=== PATIENT | female | born 1950 | race Caucasian/White ===

== ENCOUNTER 2018-07-09 21:22 | Inpatient (IN) ==
[2018-07-09] MEDS ORDERED: Diphtheria/Tetanus/Pertussis Vaccine Inj 0.5 ML Syringe IM ONE (22:57)
[2018-07-09] MEDS ORDERED: Acetaminophen 325 MG Tablet PO ONE (22:57)
--- NOTE | 2018-07-09 23:18 | XR ---
EXAM DATE: 07/09/2018 11:13 PM EDT AGE/SEX: 68 years / Female INDICATIONS: Trauma. Patient fell at home tonight. CLINICAL DATA: This is the patient's initial encounter. Patient reports that signs and symptoms have been present for 1 day and indicates a pain score of Nonresponsive. MEDICAL/SURGICAL HISTORY: Carcinoma, breast. . Left mastectomy. Brain shunt at 10 years of age. COMPARISON: [facility], XR SHUNT SERIES, 06/26/2018. . FINDINGS: No infiltrate, effusion or pneumothorax. Mild diffuse chronic interstitial opacities are again noted. Heart size stable, normal. Thoracic aorta is atherosclerotic. A ventriculoperitoneal shunt catheter is again noted. CONCLUSION: No evidence of acute cardiopulmonary disease. Electronically signed by: Robert Ma MD 07/09/2018 11:17 PM EDT
--- NOTE | 2018-07-09 23:31 | ED ---
HPI General Chief complaint: Fall Stated complaint: Fall Time Seen by Provider: 07/09/18 22:30 Source: patient and family History of Present Illness HPI narrative: The patient is a 68 year old female who presents to the [facility] emergency department with a history of reportedly falling sometime earlier this evening. The patient cannot recall the fall. The patient does have some memory problems according to her sister at the bedside. The patient has been off balance over the last 3-4 weeks with a shuffling gait. She is in the process of having this worked up as an outpatient. Last week she underwent a CT scan of the brain and a shuntogram that was reportedly unremarkable. The patient has had a shunt in place and she was 10 years of age. The patient lives alone. The patient is legally blind since childhood. According to the patient's sister, she checks on her between 11 AM and 3 PM daily and then in the the patient's niece will check on her. The patient's niece went to check on her and noticed some blood on the pillow and presume that the patient fell when she saw a wound on the right ear. The patient has an abrasion and bruising to the pinna. The patient herself denies any pain currently. She denies having any headache, neck pain, numbness or tingling to her extremities or weakness of her extremities. She denies having any chest pain, chest pressure, or shortness of breath. On review of systems otherwise, the patient denies having any known recent fevers, cough, congestion, abdominal pain, vomiting, diarrhea, urinary symptoms, or neurologic symptoms. The patient's family reports that she has had a diminished appetite over the last few days. The patient's family is unsure when her tetanus was last updated. Related Data Home Medications Medication Instructions Recorded Confirmed alendronate 70 mg PO 2XWEEK 06/21/18 07/10/18 amlodipine 5 mg PO DAILY 06/21/18 07/10/18 calcitriol 0.25 mcg PO DAILY 06/21/18 07/10/18 calcium carbonate-vitamin D3 1 tab PO 06/21/18 [Calcium 600 + D(3)] losartan 1 tab PO DAILY 06/21/18 07/10/18 omega [id number] oil [Fish Oil] 1 tab PO DAILY 06/21/18 07/10/18 Allergies Allergy/AdvReac Type Severity Reaction Status Date / Time No Known Allergies Allergy Verified 07/09/18 21:51 Review of Systems ROS: all other systems reviewed are negative (Except for that which was mentioned in the HPI) [facility] Social History Social History Substance History: No History of Abuse Second Hand Smoke Exposure: No Smoking Status: Never smoker How Often Do You Have a Drink Containing Alcohol: Monthly or less Recent Travel in [facility] within the Last 8 Weeks: No Recent Out of Country Travel within the Last 8 Weeks: No Immunization History Tetanus Immunization: Unsure Hx Influenza Vaccine This Season: Yes Exam Const General: cooperative, no acute distress and well developed Orientation: alert, awake, oriented to person, oriented to place and not oriented to time HENMT Head: normocephalic and Garrison's sign Nose: no nasal discharge and no epistaxis Mouth: moist mucous membranes Eyes Sclera: normal sclerae Pupils: other (The patient is legally blind. The patient has a disconjugate gaze. The patient is unable to see even shadows.) Neck Neck: trachea midline and no JVD Resp Effort & Inspection: no use of accessory muscles Auscultation: clear to auscultation bilaterally Cardio Rate: tachycardic (Sinus tachycardia in the low 100s. No pulse deficits to the extremities on simultaneous auscultation and palpation of her radial artery) Rhythm: regular rhythm Heart Sounds: no gallops, no murmurs and no rubs GI Inspection: non-distended Palpation: soft, no hepatosplenomegaly and nontender Auscultation: normal bowel sounds Back/Spine/Pelvis Back: no CVA tenderness Skin General: dry skin (warm) Neuro General: alert and awake Cranial Nerves: other (The patient has a disconjugate gaze related to a history of being blind since childhood, otherwise cranial nerves II through XII are intact.) Speech: speech normal Motor: strength 5/5 throughout and no movement abnormalities noted Sensory Exam: no sensory deficits noted Extrem General: normal to inspection (No calf tenderness on palpation. 2+ pulses in all 4 extremities.), no clubbing, no cyanosis and no edema Right upper extremity: normal to inspection and full ROM Left upper extremity: normal to inspection and full ROM Right lower extremity: normal to inspection and full ROM Left lower extremity: normal to inspection and full ROM Psych Mood: congruent mood Affect: normal affect Judgment: judgment good Course Consultations Consultation #1: The patient's case including history, pertinent physical examination findings, and laboratory studies were discussed with Dr. Dias. It was agreed that the patient would be admitted to Dr. Grider's service. Time: 01:45 Consultation #2: The patient's case including history, pertinent physical examination findings, and laboratory studies were discussed with the residents. It was agreed that the patient would be admitted to the family practice resident's service. Initial Documented Vital Signs Temperature 97.9 F 07/09/18 21:45 Pulse Rate 114 H 07/09/18 21:45 Respiratory Rate 16 07/09/18 21:45 Blood Pressure 200/88 H 07/09/18 21:45 Pulse Oximetry 97 07/09/18 21:45 Last Documented Vital Signs Temperature 98.5 F 07/11/18 04:00 Pulse Rate 101 H 07/11/18 04:00 Respiratory Rate 15 07/11/18 04:00 Blood Pressure 169/76 H 07/11/18 04:00 Pulse Oximetry 98 07/11/18 04:00 Medical Decision Making MDM Narrative Medical decision making narrative: During the course of the patient's emergency department visit, the patient's history, examination, and differential diagnosis were reviewed with the patient. The patient was placed on a program facilitator with oximetry and frequent blood pressure monitoring. The patient had IV access obtained and blood work sent for analysis. A diagnostic evaluation was started regarding the patient's reported fall and head injury. The patient was initially provided normal saline IV fluids of 500 mL bolus 1 due to reported decreased p.o. intake recently. The patient's diagnostic studies are remarkable for a white count of 9.3, platelets of 265, monocytosis at 10.8, neutrophil percent 82, hemoglobin 12.8, chemistry is remarkable for a glucose of 89, creatinine is 1.46. Urinalysis shows 100 protein few mucus trace ketones also consistent with mild dehydration , bacteria rare, culture indicated. Chest x-ray showed no evidence of acute cardiopulmonary disease. CT scan of the brain showed bilateral chronic subdural hematomas/cystic hygromas that are again noted measuring approximately 6 mm in maximal thickness on the right and 11 mm on the left, slightly increased density within the left collection now seen suggesting a possible acute component. This was discussed with the neurosurgeon on-call who recommended observation. He recommended repeating the CT scan of the brain in [address] scan of the C-spine showed degenerative changes, no other acute abnormality. The patient's results were discussed with the patient, including the plan of care. I explained that further testing and/ or monitoring is indicated based on the patient's history, examination, and/ or laboratory findings. Therefore, I recommended admission for additional evaluation. The patient expressed understanding and was agreeable with this plan. The patient was admitted to the hospital in guarded condition and sent to a bed under the care of the residents. Medical Screen Exam Complete: Yes Emergency Medical Condition: Yes Differential Diagnosis Differential Diagnosis: Intracranial mass, versus intracranial hemorrhage, versus cervical spine trauma Medical Records Medical records reviewed: Yes I reviewed the patient's medical records. Lab Data Lab results reviewed: Yes I reviewed the patient's lab results. Result diagrams: 07/10/18 05:40 07/10/18 05:40 Lab Results 07/09/18 07/09/18 07/09/18 Range/Units 23:59 23:59 23:59 WBC 10.1 (4.0-11.0) th/mm3 RBC 4.36 (4.00-5.30) mil/mm3 Hgb 13.8 (11.6-15.3) gm/dL Hct 39.5 (35.0-46.0) % MCV 90.5 (80.0-100.0) fL MCH 31.6 (27.0-34.0) pg MCHC 34.9 (32.0-36.0) % RDW 13.5 (11.6-17.2) % Plt Count 265 (150-450) th/mm3 MPV 7.9 (7.0-11.0) fL Neut % (Auto) 85.3 H (16.0-70.0) % Lymph % (Auto) 5.6 L (9.0-44.0) % [place] % (Auto) 8.2 H (0.0-8.0) % Eos % (Auto) 0.2 (0.0-4.0) % Baso % (Auto) 0.7 (0.0-2.0) % Neut # (Auto) 8.6 H (1.8-7.7) th/mm3 Lymph # (Auto) 0.6 L (1.0-4.8) th/mm3 [place] # (Auto) 0.8 (0.0-0.9) th/mm3 Eos # (Auto) 0.0 (0.0-0.4) th/mm3 Baso # (Auto) 0.1 (0.0-0.2) th/mm3 WBC Differential . Differential Comment Auto diff final Sodium 134 L (136-145) meq/L Potassium 3.5 (3.5-5.1) meq/L Chloride 96 L (98-107) meq/L Carbon Dioxide 24.5 (21.0-32.0) meq/L Anion Gap 14 (5-15) meq/L BUN 37 H (7-18) mg/dL Creatinine 1.46 H (0.50-1.00) mg/dL Estimated GFR 36 L (>89) mL/min Random Glucose 89 (74-106) mg/dL Calcium 9.0 (8.5-10.1) mg/dL Total Bilirubin 0.6 (0.2-1.0) mg/dL AST 15 (15-37) U/L ALT 14 (10-53) U/L Alkaline Phosphatase 43 L (45-117) U/L Ammonia (11-32) mcmol/L Total Protein 7.4 (6.4-8.2) g/dL Albumin 4.1 (3.4-5.0) g/dL Vitamin B12 (193-986) pg/mL TSH (0.358-3.740) uIU/mL Urine Color Straw (Yellw/Straw) Urine Clarity Clear (Clear) Urine pH 6.0 (5.0-8.5) Ur Specific [place] 1.006 (1.002-1.035) Urine Protein 100 H (Neg-Trace) mg/dL Urine Glucose (UA) Negative (Negative) mg/dL Urine Ketones Trace H (Negative) mg/dL Urine Occult Blood Negative (Negative) Urine Nitrate Negative (Negative) Urine Bilirubin Negative (Negative) Urine Urobilinogen Less than 2 (Less than 2) mg/dL Ur Leukocyte Esterase Negative (Negative) Urine RBC 1 (0-3) /hpf Urine WBC 2 (0-5) /hpf Urine Bacteria Rare H (None) /hpf Urine Mucus Few H (Occasional) /lpf Micro UA Comment Cath-culture ind Ur Microscopic Review Not Reportable Urine Culture Comments Cath-cult indicated 07/10/18 07/10/18 07/10/18 Range/Units 05:40 05:40 20:45 WBC 9.3 (4.0-11.0) th/mm3 RBC 4.11 (4.00-5.30) mil/mm3 Hgb 12.8 (11.6-15.3) gm/dL Hct 37.8 (35.0-46.0) % MCV 92.0 (80.0-100.0) fL MCH 31.1 (27.0-34.0) pg MCHC 33.8 (32.0-36.0) % RDW 13.7 (11.6-17.2) % Plt Count 265 (150-450) th/mm3 MPV 8.1 (7.0-11.0) fL Neut % (Auto) 82.0 H (16.0-70.0) % Lymph % (Auto) 6.4 L (9.0-44.0) % [place] % (Auto) 10.8 H (0.0-8.0) % Eos % (Auto) 0.3 (0.0-4.0) % Baso % (Auto) 0.5 (0.0-2.0) % Neut # (Auto) 7.6 (1.8-7.7) th/mm3 Lymph # (Auto) 0.6 L (1.0-4.8) th/mm3 [place] # (Auto) 1.0 H (0.0-0.9) th/mm3 Eos # (Auto) 0.0 (0.0-0.4) th/mm3 Baso # (Auto) 0.0 (0.0-0.2) th/mm3 WBC Differential . Differential Comment Auto diff final Sodium 136 (136-145) meq/L Potassium 3.3 L (3.5-5.1) meq/L Chloride 98 (98-107) meq/L Carbon Dioxide 24.7 (21.0-32.0) meq/L Anion Gap 13 (5-15) meq/L BUN 36 H (7-18) mg/dL Creatinine 1.34 H (0.50-1.00) mg/dL Estimated GFR 39 L (>89) mL/min Random Glucose 70 L (74-106) mg/dL Calcium 8.7 (8.5-10.1) mg/dL Total Bilirubin (0.2-1.0) mg/dL AST (15-37) U/L ALT (10-53) U/L Alkaline Phosphatase (45-117) U/L Ammonia 14 (11-32) mcmol/L Total Protein (6.4-8.2) g/dL Albumin (3.4-5.0) g/dL Vitamin B12 248 (193-986) pg/mL TSH (0.358-3.740) uIU/mL Urine Color (Yellw/Straw) Urine Clarity (Clear) Urine pH (5.0-8.5) Ur Specific [place] (1.002-1.035) Urine Protein (Neg-Trace) mg/dL Urine Glucose (UA) (Negative) mg/dL Urine Ketones (Negative) mg/dL Urine Occult Blood (Negative) Urine Nitrate (Negative) Urine Bilirubin (Negative) Urine Urobilinogen (Less than 2) mg/dL Ur Leukocyte Esterase (Negative) Urine RBC (0-3) /hpf Urine WBC (0-5) /hpf Urine Bacteria (None) /hpf Urine Mucus (Occasional) /lpf Micro UA Comment Ur Microscopic Review Urine Culture Comments 07/10/18 Range/Units 20:45 WBC (4.0-11.0) th/mm3 RBC (4.00-5.30) mil/mm3 Hgb (11.6-15.3) gm/dL Hct (35.0-46.0) % MCV (80.0-100.0) fL MCH (27.0-34.0) pg MCHC (32.0-36.0) % RDW (11.6-17.2) % Plt Count (150-450) th/mm3 MPV (7.0-11.0) fL Neut % (Auto) (16.0-70.0) % Lymph % (Auto) (9.0-44.0) % [place] % (Auto) (0.0-8.0) % Eos % (Auto) (0.0-4.0) % Baso % (Auto) (0.0-2.0) % Neut # (Auto) (1.8-7.7) th/mm3 Lymph # (Auto) (1.0-4.8) th/mm3 [place] # (Auto) (0.0-0.9) th/mm3 Eos # (Auto) (0.0-0.4) th/mm3 Baso # (Auto) (0.0-0.2) th/mm3 WBC Differential Differential Comment Sodium (136-145) meq/L Potassium (3.5-5.1) meq/L Chloride (98-107) meq/L Carbon Dioxide (21.0-32.0) meq/L Anion Gap (5-15) meq/L BUN (7-18) mg/dL Creatinine (0.50-1.00) mg/dL Estimated GFR (>89) mL/min Random Glucose (74-106) mg/dL Calcium (8.5-10.1) mg/dL Total Bilirubin (0.2-1.0) mg/dL AST (15-37) U/L ALT (10-53) U/L Alkaline Phosphatase (45-117) U/L Ammonia (11-32) mcmol/L Total Protein (6.4-8.2) g/dL Albumin (3.4-5.0) g/dL Vitamin B12 (193-986) pg/mL TSH 2.460 (0.358-3.740) uIU/mL Urine Color (Yellw/Straw) Urine Clarity (Clear) Urine pH (5.0-8.5) Ur Specific [place] (1.002-1.035) Urine Protein (Neg-Trace) mg/dL Urine Glucose (UA) (Negative) mg/dL Urine Ketones (Negative) mg/dL Urine Occult Blood (Negative) Urine Nitrate (Negative) Urine Bilirubin (Negative) Urine Urobilinogen (Less than 2) mg/dL Ur Leukocyte Esterase (Negative) Urine RBC (0-3) /hpf Urine WBC (0-5) /hpf Urine Bacteria (None) /hpf Urine Mucus (Occasional) /lpf Micro UA Comment Ur Microscopic Review Urine Culture Comments Imaging Data Radiologist's impression: Cervical Spine CT 07/09/18 22:57 CONCLUSION: 1. Intact cervical spine. 2. Degenerative disc disease at C5/C6. Chest X-Ray 07/09/18 22:57 CONCLUSION: No evidence of acute cardiopulmonary disease. Head CT 07/09/18 22:57 CONCLUSION: 1. Bilateral chronic subdural hematomas. Questionable superimposed acute component on the left but no significant change in size. Close clinical observation and a follow-up noncontrast head CT and approximately 24 hours is recommended. 2. Otherwise no evidence of acute intracranial hemorrhage/hematoma. There is no midline shift. 3. Atrophy and chronic white matter changes are again noted. 4. Shunted. No evidence of an associated acute complication. . ECG Data Attestation: I personally reviewed and interpreted this ECG as follows: Interpretation: The patient had an EKG done on arrival. The patient's EKG shows a sinus tachycardia rate of 112, QRS duration 74 ms, QTC [address] segment elevation. The patient's baseline is tremulous which could be affecting interpretation, however multiple EKGs were done to eliminate the tremulousness without success. Discharge Plan Discharge Disposition Patient Disposition: 30 Still Patient Discharge Details Diagnosis: Head injury, Subdural hematoma, post-traumatic Physicians Team ED Provider: Brit Rodríguez Primary Care Provider: Patsy Grider Attending Provider: Patsy Grider Other Providers: Percy Dias ; Priyank Holguin Discharge Interventions Interventions: ED Discharge Assessment Last Done: 07/10/18 08:20 Vital Signs Last Done: 07/10/18 06:00 Status ED Status: Left Department Discharge Information Discharge Date/Time: 07/10/18 08:21
[2018-07-09] MEDS ORDERED: Sodium Chlor 0.9% Inj 500 ML IV.SIG ONE (23:43)
--- NOTE | 2018-07-09 23:46 | CT ---
EXAM DATE: 07/09/2018 11:40 PM EDT AGE/SEX: 68 years / Female INDICATIONS: Trauma; fall. CLINICAL DATA: This is the patient's initial encounter. Patient reports that signs and symptoms have been present for 1 day and indicates a pain score of 0/10. MEDICAL/SURGICAL HISTORY: Hypertension. Brain tumor . DIRECTOR CLINICAL PHARMACOLOGY shunt RADIATION DOSE: 9.50 CTDI (mGy) COMPARISON: No prior exams available for comparison. TECHNIQUE: Contiguous axial images were obtained using helical multirow detector technique. The vol umetric data was post-processed with multiplanar reconstruction in oblique axial, sagittal, and coron al planes. Using automated exposure control and adjustment of the mA and/or kV according to patient s ize, radiation dose was kept as low as reasonably achievable to obtain optimal diagnostic quality chapo ges. DICOM format image data is available electronically for review and comparison. FINDINGS: No fracture or subluxation of the cervical spine. Vertebral bodies have normal height. Paravertebral soft tissues are within normal limits. Mild uncovertebral and facet osteoarthritis throughout. There is moderate disc space narrowing with a small, broad posterior disc osteophyte complex at C5/C6. CONCLUSION: 1. Intact cervical spine. 2. Degenerative disc disease at C5/C6. Electronically signed by: Robert Ma MD 07/09/2018 11:45 PM EDT
--- NOTE | 2018-07-09 23:52 | CT ---
EXAM DATE: 07/09/2018 11:37 PM EDT AGE/SEX: 68 years / Female INDICATIONS: Trauma; fall. CLINICAL DATA: This is the patient's initial encounter. Patient reports that signs and symptoms have been present for 1 day and indicates a pain score of 0/10. MEDICAL/SURGICAL HISTORY: Hypertension. brain tumor . CLIENT SERVICES MANAGER shunt RADIATION DOSE: 56.35 CTDI (mGy) COMPARISON: [facility], CT BRAIN W AND W/O CONTRAST, 07/03/2018. . TECHNIQUE: CT of the head without contrast. Using automated exposure control and adjustment of the mA and/or kV according to patient size, radiation dose was kept as low as reasonably achievable to ob tain optimal diagnostic quality images. DICOM format image data is available electronically for revi ew and comparison. FINDINGS: Bilateral chronic subdural hematomas/cystic hygromas are again noted, measuring approximately 6 mm in maximal thickness on the right and 11 mm in maximal thickness on the left. There is slightly increas ed density within the left collection now seen suggesting a possible acute component. Overall size of the collection not significantly changed since the . No midline shift. Shunt catheter again seen. No ventriculomegaly. Atrophy and chronic white matter ch anges are again seen. CONCLUSION: 1. Bilateral chronic subdural hematomas. Questionable superimposed acute component on the left but n o significant change in size. Close clinical observation and a follow-up noncontrast head CT and appr oximately 24 hours is recommended. 2. Otherwise no evidence of acute intracranial hemorrhage/hematoma. There is no midline shift. 3. Atrophy and chronic white matter changes are again noted. 4. Shunted. No evidence of an associated acute complication. . Electronically signed by: Robert Ma MD 07/09/2018 11:51 PM EDT
[2018-07-10 00:10] LABS: Baso # (Auto) 0.1 th/mm3 (0.0-0.2); Baso % (Auto) 0.7 % (0.0-2.0); Eos % (Auto) 0.2 % (0.0-4.0); Hematocrit 39.5 % (35.0-46.0); Hemoglobin 13.8 gm/dL (11.6-15.3); Lymph # (Auto) 0.6 th/mm3 (1.0-4.8); Lymph % (Auto) 5.6 % (9.0-44.0); Mean Corpuscular HGB Conc 34.9 % (32.0-36.0); Mean Corpuscular Hemoglobin 31.6 pg (27.0-34.0); Mean Corpuscular Volume 90.5 fL (80.0-100.0); Mean Platelet Volume 7.9 fL (7.0-11.0); Mono # (Auto) 0.8 th/mm3 (0.0-0.9); Mono % (Auto) 8.2 % (0.0-8.0); Neut # (Auto) 8.6 th/mm3 (1.8-7.7); Neut % (Auto) 85.3 % (16.0-70.0); Platelet Count 265 th/mm3 (150-450); Red Blood Count 4.36 mil/mm3 (4.00-5.30); Red Cell Distribution Width 13.5 % (11.6-17.2); White Blood Count 10.1 th/mm3 (4.0-11.0)
[2018-07-10 00:18] LABS: Bacteria,Urine Rare /hpf; Bilirubin,Urine Negative (Negative); Clarity,Urine Clear (Clear); Color,Urine Straw (Yellw/Straw); Glucose,Urine (UA) Negative (Negative); Leukocyte Esterase,Urine Negative (Negative); Mucus,Urine Few /lpf (Occasional); Nitrite,Urine Negative (Negative); Specific Gravity,Urine 1.006 (1.002-1.035)
[2018-07-10 00:33] LABS: Alanine Aminotransferase 14 U/L (10-53); Albumin 4.1 g/dL (3.4-5.0); Anion Gap 14 meq/L (5-15); Aspartate Aminotransferase 15 U/L (15-37); Blood Urea Nitrogen 37 mg/dL (7-18); Carbon Dioxide 24.5 meq/L (21.0-32.0); Chloride 96 meq/L (98-107); Glomerular Filtration Rate 36 mL/min (>89); Glucose,Random 89 mg/dL (74-106); Potassium 3.5 meq/L (3.5-5.1); Sodium 134 meq/L (136-145)
[2018-07-10 00:36] LABS: Alkaline Phosphatase 43 U/L (45-117); Total Protein 7.4 g/dL (6.4-8.2)
--- NOTE | 2018-07-10 02:06 | P.HPFP ---
History of Present Illness Primary Care Physician: Patsy Grider MD History of Present Illness: 68-year-old blind female who presents to the ED due to fall. History provided by sister. States that patient has had neurological symptoms, including balance instability, shuffling gait, and slurred speech for the past 4 weeks. Patient was being worked up for neurological symptoms by PCP, Dr. Grider. Workup has included negative CT shuntogram, negative UA w/ Ucx, hyponatremia (129) and ARF (Cr. 1.77) on BMP, normal TSH, and normal ammonia. At last office visit , patient had CT of brain with and without contrast ordered on 07/03 that demonstrated bilateral chronic subdural hygromas and chronic bilateral old basal ganglia lacunar infarcts. Patient has unable to get an MRI of brain due to unknown type of GOODWILL REPRESENTATIVE shunt. Patient was referred to neurology, but has not seen yet. Sister states that patient is able to ambulate independently with a cane. Sister states that she left from patient's house around 2:30 PM this afternoon. Niece came by the house around 5:30 PM. Patient was found sleeping in the bed and niece noticed that there was blood on the pillow and that patient had a bloody right ear. They immediately called the ambulance. Patient was not complaining of any pain at that time. Patient reports that she does not remember what happened. Does not recall if there was any blood on the furniture or carpet. Sister reports that patient is currently at mental baseline. States that her speech has improved slightly, but has worsening gait instability. Patient endorses slight neck pain, dysuria, and urinary urgency. Denies tremors, FRENCH, chest pain, SOB, history of seizures, family history of neurological disorders, weight loss, fevers, and N/V. Patient is currently several medications at home, including antihypertensive. Sister noted that patient has not been taking her medications correctly. PMHx: Hypertension Anemia Chronic kidney disease stage III Osteoarthritis Brain tumor status post GOODWILL REPRESENTATIVE shunt at age 10 PSHx: Status post GOODWILL REPRESENTATIVE shunt at age 10 Left mastectomy 2011 due to left breast intraductal carcinoma FHx: -Mom of stroke at 60 -Dad- 69, unknown cause-DM -Sisters- nonessential tremors -grandma- breast cancer Immunizations UTD No known allergies. 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, sister and niece live close by Never Smoker Occasional drinking Denies other illicit drugs - Diagnosis (1) Subdural hematoma, post-traumatic (2) Change in mental status (3) Urinary tract infection (4) HTN (hypertension) (5) CKD (chronic kidney disease) (6) S/P GOODWILL REPRESENTATIVE shunt (7) Nutrition, metabolism, and development symptoms Review of Systems All other systems reviewed negative except as stated in HPI Constitutional: Denies anorexia, Denies fever(s), Denies headache(s), Denies night sweats, Denies weight loss Ears, Nose, Mouth, and Throat: Denies headache(s), Denies pain with swallowing Cardiovascular: Denies chest pain, Denies shortness of breath Respiratory: Denies cough, Denies shortness of breath, Denies wheezing Gastrointestinal: Denies abdominal pain Musculoskeletal: Reports abnormal walking Skin/Breast: Reports wounds, Denies rash Comments: right ear abrasion due to fall Neurologic: Reports abnormal speech, Reports unsteadiness, Denies memory loss, Denies seizure-like activity, Denies tingling/numbness/burning sensations, Denies tremor(s) Psychiatric: Denies change in appetite, Denies depression Endocrine: Denies rapid, pounding, or irregular heartbeat PMFSH - History History Provided By: Patient - Medical History Medical History: Medical History (Last Reviewed 07/09/18 @ 23:42 by Brit Rodríguez MD) HTN (hypertension) (Acute) Anemia (Acute) CKD (chronic kidney disease) (Acute) Arthritis (Acute) Brain tumor (Acute) - Surgical History Surgical History: Surgical History (Last Updated 07/09/18 @ 23:42 by Brit Rodríguez MD) S/P GOODWILL REPRESENTATIVE shunt (Acute) H/O mastectomy - Tobacco History Second Hand Smoke Exposure: No Tobacco Use In Past 30 Days: No Smoking Status: Never smoker - Alcohol History How Often Do You Have a Drink Containing Alcohol: Monthly or less - Substance Use History Substance History: No History of Abuse - Travel History Recent Travel in the USA Within the Last 8 Weeks: No Recent Travel Out of the Country Within the Last 8 Weeks: No - Immunization History Tetanus Immunization: Unsure Hx Influenza Vaccine This Season: Yes Medications and Allergies Active Medications: Active Medications Sodium Chloride (Ns Inj) 1,000 mls @ 100 mls/hr IV.CONT .Q10H JANES Sodium Chloride (Ns Flush) 2 ml IV.FLUSH PRN PRN PRN Reason: FLUSH AFTER USING IV ACCESS Allergies Allergy/AdvReac Type Severity Reaction Status Date / Time No Known Allergies Allergy Verified 07/09/18 21:51 Home Medications Medication Instructions Recorded Confirmed Type alendronate 70 mg PO 2XWEEK 06/21/18 07/10/18 History amlodipine 5 mg PO DAILY 06/21/18 07/10/18 History calcitriol 0.25 mcg PO DAILY 06/21/18 07/10/18 History calcium carbonate-vitamin D3 1 tab PO 06/21/18 History [Calcium 600 + D(3)] losartan 1 tab PO DAILY 06/21/18 07/10/18 History omega 8-ugh-phy-fish oil [Fish Oil] 1 tab PO DAILY 06/21/18 07/10/18 History Exam Vital signs: Vital Signs 07/09/18 21:45 07/10/18 00:51 Temperature 97.9 F Pulse Rate 114 H 107 H Respiratory Rate 16 Blood Pressure 200/88 H 184/84 H Pulse Oximetry 97 98 Intake & Output 07/09/18 07/09/18 07/10/18 06:59 18:59 06:59 Weight 36.287 kg - Constitutional no acute distress, thin - Routine HEENT Exam Head: Present: normocephalic, atraumatic ENT: Present: TM's clear bilaterally Comments: Patient is legally blind. Swelling and bruising if right ear - Routine Neck Exam Present: supple, full ROM. Absent: JVD, carotid bruit - Routine Respiratory Exam Present: CTA bilaterally. Absent: accessory muscle use, wheezes, crackles - Routine Cardiovascular Exam Present: S1, S2, tachycardia Comments: tachycardia with HR in 107-114 - Routine Abdominal Exam Present: soft - Routine Extremities Exam Present: full ROM. Absent: cyanosis, clubbing, edema - Routine Skin Exam Present: intact, dry. Absent: cyanosis - Routine Neurological Exam Present: alert, oriented X3, CN II-XII intact, moving all extremities, normal speech. Absent: pronator drift, tremors Patient blind since childhood due to brain tumor. Unable to perform cerebellar tests Results - Labs Result diagrams: 07/09/18 23:59 07/09/18 23:59 Abnormal lab results 08/27/18 08/27/18 08/27/18 Range/Units 23:59 23:59 23:59 Neut % (Auto) 85.3 H (16.0-70.0) % Lymph % (Auto) 5.6 L (9.0-44.0) % Story % (Auto) 8.2 H (0.0-8.0) % Neut # (Auto) 8.6 H (1.8-7.7) th/mm3 Lymph # (Auto) 0.6 L (1.0-4.8) th/mm3 Sodium 134 L (136-145) meq/L Chloride 96 L (98-107) meq/L BUN 37 H (7-18) mg/dL Creatinine 1.46 H (0.50-1.00) mg/dL Estimated GFR 36 L (>89) mL/min Alkaline Phosphatase 43 L (45-117) U/L Urine Protein 100 H (Neg-Trace) mg/dL Urine Ketones Trace H (Negative) mg/dL Urine Bacteria Rare H (None) /hpf Urine Mucus Few H (Occasional) /lpf Short CBC 07/09/18 Range/Units 23:59 WBC 10.1 (4.0-11.0) th/mm3 Hgb 13.8 (11.6-15.3) gm/dL Hct 39.5 (35.0-46.0) % Plt Count 265 (150-450) th/mm3 BMP 07/09/18 23:59 Sodium 134 L Potassium 3.5 Chloride 96 L Carbon Dioxide 24.5 BUN 37 H Creatinine 1.46 H Calcium 9.0 Liver Function 07/09/18 Range/Units 23:59 Total Bilirubin 0.6 (0.2-1.0) mg/dL AST 15 (15-37) U/L ALT 14 (10-53) U/L Alkaline Phosphatase 43 L (45-117) U/L Albumin 4.1 (3.4-5.0) g/dL Urine 07/09/18 Range/Units 23:59 Urine Color Straw (Yellw/Straw) Urine Clarity Clear (Clear) Urine pH 6.0 (5.0-8.5) Ur Specific [place] 1.006 (1.002-1.035) Urine Protein 100 H (Neg-Trace) mg/dL Urine Glucose (UA) Negative (Negative) mg/dL - Imaging Impressions Cervical Spine CT 07/09/18 22:57 CONCLUSION: 1. Intact cervical spine. 2. Degenerative disc disease at C5/C6. Chest X-Ray 07/09/18 22:57 CONCLUSION: No evidence of acute cardiopulmonary disease. Head CT 07/09/18 22:57 CONCLUSION: 1. Bilateral chronic subdural hematomas. Questionable superimposed acute component on the left but no significant change in size. Close clinical observation and a follow-up noncontrast head CT and approximately 24 hours is recommended. 2. Otherwise no evidence of acute intracranial hemorrhage/hematoma. There is no midline shift. 3. Atrophy and chronic white matter changes are again noted. 4. Shunted. No evidence of an associated acute complication. . Caprini VTE Risk Assessment Caprini VTE Risk Assessment: Moderate/High Risk (score >= 2) Caprini Risk Assessment Model: Point Value = 1 Point Value = 2 Point Value = 3 Point Value = 5 Age 41-60 Minor surgery BMI > 25 kg/m2 Swollen legs Varicose veins or History of unexplained or recurrent spontaneous Oral contraceptives or hormone replacement Sepsis (< 1 month) Serious lung disease, including pneumonia (< 1 month) Abnormal pulmonary function Acute myocardial infarction Congestive heart failure (< 1 month) History of inflammatory bowel disease Medical patient at bed rest Age 61-74 Arthroscopic surgery Major open surgery (> 45 min) Laparoscopic surgery (> 45 min) Malignancy Confined to bed (> 72 hours) Immobilizing plaster cast Central venous access Age >= 75 History of VTE Family history of VTE Factor V Leiden Prothrombin [id number] Lupus anticoagulant Anticardiolipin antibodies Elevated serum homocysteine Heparin-induced thrombocytopenia Other congenital or acquired thrombophilia Stroke (< 1 month) Elective arthroplasty Hip, pelvis, or leg fracture Acute spinal cord injury (< 1 month) Prophylaxis Regimen: Total Risk Factor Score Risk Level Prophylaxis Regimen 0-1 Low Early ambulation 2 Moderate Order ONE of the following: *Sequential Compression Device (SCD) *Heparin 5000 units SQ BID 3-4 Higher Order ONE of the following medications: *Heparin 5000 units SQ TID *Enoxaparin/Lovenox 40 mg SQ daily (WT < 150 kg, CrCl > 30 mL/min) *Enoxaparin/Lovenox 30 mg SQ daily (WT < 150 kg, CrCl > 10-29 mL/min) *Enoxaparin/Lovenox 30 mg SQ BID (WT < 150 kg, CrCl > 30 mL/min) AND/OR *Sequential Compression Device (SCD) 5 or more Highest Order ONE of the following medications: *Heparin 5000 units SQ TID (Preferred with Epidurals) *Enoxaparin/Lovenox 40 mg SQ daily (WT < 150 kg, CrCl > 30 mL/min) *Enoxaparin/Lovenox 30 mg SQ daily (WT < 150 kg, CrCl > 10-29 mL/min) *Enoxaparin/Lovenox 30 mg SQ BID (WT < 150 kg, CrCl > 30 mL/min) AND *Sequential Compression Device (SCD) Assessment and Plan - Assessment (1) Subdural hematoma, post-traumatic Code(s): S06.5X9A - Traumatic subdural hemorrhage with loss of consciousness of unspecified duration, initial encounter Status: Acute Plan: A/P: 68-year-old blind female with s/p GOODWILL REPRESENTATIVE shunt and HTN presents to the ED due to fall secondary to neurological symptoms. Patient was currently being worked up for neurological symptoms outpatient. Workup has included negative CT shuntogram, negative UA w/ Ucx, hyponatremia ( 129) and ARF (Cr. 1.77) on BMP, normal TSH, and normal ammonia. At last office visit, patient had CT of brain with and without contrast ordered on 07/03 that demonstrated bilateral chronic subdural hygromas and chronic bilateral old basal ganglia lacunar infarcts. Patient has unable to get an MRI of brain due to unknown type of GOODWILL REPRESENTATIVE shunt. Patient was referred to neurology, but has not seen yet. DDx: Parkinson vs Alz's vs malignancy vs delirium Labs & Imaging: -CBC unremarkable -BMP, hyponatremia (134), BUN (37), and Cr (1.46) -UA positive for proteins, trace ketones, rare bacteria, and mucus -Urine culture pending -Chest x-ray negative -EKG demonstrates sinus tachycardia with a rate of 112, QRS duration 74 ms, QTC 393ms. No T-wave or ST changes. -Head CT demonstrated bilateral chronic subdural hematomas. Questionable superimposed acute component on the left but no significant change in size. Close clinical observation and will follow-up with noncontrasted CT in approximately 24 hours. Otherwise, no evidence of acute intracranial hemorrhage /hematoma. There is no midline shift. Atrophy and chronic white matter changes are again noted. Shunted. No evidence of associated acute palpation. -Cervical CT, intact cervical spine and degenerative disc disease at C5/C6 Plan: -ED physician consulted neurosurgeon, . Recommended CT of head without contrast in 24 hours. -Neurochecks every 4h -Fall precautions -PT consulted to eval/treat -NPO except meds -Maintenance fluids -CBC w/ diff, BMP, and Vit. B12 ordered for the AM (2) Change in mental status Code(s): R41.82 - Altered mental status, unspecified Status: Acute Plan: see plan above (3) Urinary tract infection Code(s): N39.0 - Urinary tract infection, site not specified Status: Acute Plan: UA positive for bacteria. Urine culture pending. s/p Keflex 500 mg p.o. once in the ED. Will start patient on Rocephin 1000 mg IV q24h. Will transition to appropriate PO med once cultures and susceptibilities return. (4) HTN (hypertension) Code(s): I10 - Essential (primary) hypertension Status: Acute Plan: Patient noncompliant with antihypertensives at home. Continue amlodipine 5 mg p.o. daily and losartan 25 mg p.o. daily Clonidine 0.1 mg p.o. every 6 hours as needed for blood pressure > 180/100 (5) CKD (chronic kidney disease) Code(s): N18.9 - Chronic kidney disease, unspecified Status: Acute Plan: Baseline creatinine of 1.3. BUN of 37 and creatinine 1.46 on BMP Continue with maintenance fluids normal saline 76mls/hr Continue to monitor (6) S/P GOODWILL REPRESENTATIVE shunt Code(s): Z98.2 - Presence of cerebrospinal fluid drainage device Status: Acute Plan: Patient had a GOODWILL REPRESENTATIVE shunt placed at age 10 due to brain tumor. Unknown type of shunt. Patient had procedure done at [facility]. Likely chart was destroyed. (7) Nutrition, metabolism, and development symptoms Code(s): R63.8 - Other symptoms and signs concerning food and fluid intake Status: Acute Plan: Diet: NPO for now incase surgical intervention needed Fluids: Normal saline 76mls/hr Other: Neuro checks every 4, vital every 4, cardiac telemetry, monitor I's and O 's DVT ppx: SCDs, pharmacological ppx contraindicated due to acute subdural hematoma PT consulted Case Management consulted
[2018-07-10] MEDS: Sod Chloride 0.9% Inj 1,000 ML IV.CONT SCH ×2 (03:40→17:12)
[2018-07-10] MEDS: amLODIPine 5 MG Tablet PO SCH ×2 (03:50→11:33)
[2018-07-10 07:04] LABS: Baso % (Auto) 0.5 % (0.0-2.0); Eos % (Auto) 0.3 % (0.0-4.0); Hematocrit 37.8 % (35.0-46.0); Hemoglobin 12.8 gm/dL (11.6-15.3); Lymph # (Auto) 0.6 th/mm3 (1.0-4.8); Lymph % (Auto) 6.4 % (9.0-44.0); Mean Corpuscular HGB Conc 33.8 % (32.0-36.0); Mean Corpuscular Hemoglobin 31.1 pg (27.0-34.0); Mean Platelet Volume 8.1 fL (7.0-11.0); Mono % (Auto) 10.8 % (0.0-8.0); Neut # (Auto) 7.6 th/mm3 (1.8-7.7); Platelet Count 265 th/mm3 (150-450); Red Blood Count 4.11 mil/mm3 (4.00-5.30); Red Cell Distribution Width 13.7 % (11.6-17.2); White Blood Count 9.3 th/mm3 (4.0-11.0)
[2018-07-10 07:29] LABS: Calcium 8.7 mg/dL (8.5-10.1); Carbon Dioxide 24.7 meq/L (21.0-32.0); Potassium 3.3 meq/L (3.5-5.1)
[2018-07-10] MEDS ORDERED: OMEGA DHA EPA FISH OIL PO SCH (09:00)
[2018-07-10] MEDS ORDERED: amLODIPine 5 MG Tablet PO SCH (09:00)
--- NOTE | 2018-07-10 09:40 | P.CONNS ---
History of Present Illness Service: Neurosurgery Consult date: 07/10/18 Requesting Physician: Brit Rodríguez Reason for Consult: Bilateral subdural hygromas Primary Care Provider: Patsy Grider MD Family Provider: Patsy Grider MD History of Present Illness: 68-year-old female with a history of ventriculoperitoneal shunt placement over 50 years ago following "benign" brain tumor resection in [place]. She is legally blind and his sister is involved in her care. Over the past month she is noted worsening gait with shuffling and slurred speech with CT scan head obtained revealing chronic bilateral hygromas collections and right frontal ventriculoperitoneal shunt in place. She had a shuntogram undertaken by the radiologist which revealed the shunt is functioning and patent. She is referred to neurology but has not seen one. She fell last night and was brought to [facility] emergency room where CT scan head again reveals bilateral subdural hygromas collections with a questionable acute component versus a subdural membrane. Patient denies any headaches or nausea vomiting. According to sister at the bedside her speech has improved since this fall last evening. She has been admitted for observation with follow-up CT scan tomorrow morning. Review of Systems All other systems reviewed negative except as stated in HPI PMFSH - History History Provided By: Patient, Family Member - Medical History Medical History: Medical History (Last Reviewed 07/10/18 @ 08:00 by Hema Maciel) HTN (hypertension) (Acute) Anemia (Acute) CKD (chronic kidney disease) (Acute) Arthritis (Acute) Brain tumor (Acute) - Surgical History Surgical History: Surgical History (Last Reviewed 07/10/18 @ 08:00 by Hema Maciel) S/P GUEST SERVICE REPRESENTATIVE shunt (Chronic) H/O mastectomy - Tobacco History Second Hand Smoke Exposure: No Tobacco Use In Past 30 Days: No Smoking Status: Never smoker - Alcohol History How Often Do You Have a Drink Containing Alcohol: Monthly or less - Substance Use History Substance History: No History of Abuse - Travel History Recent Travel in the [place] Within the Last 8 Weeks: No Recent Travel Out of the Country Within the Last 8 Weeks: No - Immunization History Tetanus Immunization: Unsure Hx Influenza Vaccine This Season: Yes Medications and Allergies Active Medications: Active Medications Amlodipine Besylate (Norvasc) 5 mg PO DAILY JANES Last Admin: 07/10/18 03:50 Dose: 5 mg Calcitriol (Rocaltrol) 0.25 mcg PO DAILY [facility] Clonidine HCl (Catapres) 0.1 mg PO Q6H PRN PRN Reason: SEE LABEL COMMENTS Sodium Chloride (Ns Inj) 1,000 mls @ 76 mls/hr IV.CONT .[id number] [facility] Last Admin: 07/10/18 03:40 Dose: 100 mls/hr Ceftriaxone Sodium 1,000 mg/ (Sodium Chloride) 100 mls @ 200 mls/hr IV.SIG Q24H [facility] Losartan Potassium (Cozaar) 25 mg PO DAILY [facility] Last Admin: 07/10/18 03:50 Dose: 25 mg Sodium Chloride (Ns Flush) 2 ml IV.FLUSH PRN PRN PRN Reason: FLUSH AFTER USING IV ACCESS Allergies Allergy/AdvReac Type Severity Reaction Status Date / Time No Known Allergies Allergy Verified 07/09/18 21:51 Home Medications Medication Instructions Recorded Confirmed Type alendronate 70 mg PO 2XWEEK 06/21/18 07/10/18 History amlodipine 5 mg PO DAILY 06/21/18 07/10/18 History calcitriol 0.25 mcg PO DAILY 06/21/18 07/10/18 History calcium carbonate-vitamin D3 1 tab PO 06/21/18 History [Calcium 600 + D(3)] losartan 1 tab PO DAILY 06/21/18 07/10/18 History omega 8-byf-bwr-fish oil [Fish Oil] 1 tab PO DAILY 06/21/18 07/10/18 History Exam Vital signs: Vital Signs 07/09/18 21:45 07/10/18 00:51 07/10/18 02:19 Temperature 97.9 F Pulse Rate 114 H 107 H 110 H Respiratory Rate 16 18 Blood Pressure 200/88 H 184/84 H 174/80 H Pulse Oximetry 97 98 99 07/10/18 05:52 07/10/18 08:00 07/10/18 09:00 Temperature 97.8 F Pulse Rate 100 H 100 H 100 H Respiratory Rate 18 15 Blood Pressure 163/79 H Pulse Oximetry 98 99 07/10/18 09:17 Temperature 97.8 F Pulse Rate 100 H Respiratory Rate 14 Blood Pressure 147/72 H Pulse Oximetry 99 Intake & Output 07/09/18 07/10/18 07/10/18 18:59 06:59 18:59 Intake Total 600 / 600 Balance 600 / 600 Weight 36.287 kg Intake: IV 600 / 600 NS Inj 500 ML @ Wide Open IV. 500 / 500 SIG BOLUS ONE Rx#:[id number] Rocephin Inj 1,000 MG In NS Inj 100 / 100 100 ML @ 200 mls/hr IV.SIG Q24H JANES Rx#:[id number] Other: Date of Last Bowel Movement 07/09/18 - Constitutional no acute distress, thin, cooperative - Routine HEENT Exam Head: Present: normocephalic, atraumatic (Right frontal shunt valve and catheter is palpated without any tenderness erythema) ENT: Present: mucous membranes moist, nares patent, external ear normal - Routine Neck Exam Present: supple, full ROM - Routine Respiratory Exam Present: CTA bilaterally - Routine Cardiovascular Exam Present: RRR, S1, S2 - Routine Abdominal Exam Present: soft, normoactive bowel sounds - Routine Extremities Exam Present: full ROM, normal capillary refill - Routine Skin Exam Present: intact - Routine Neurological Exam Present: alert, CN II-XII intact (She is legally blind with limited extraocular motility prefers a right gaze preference), plantar reflex, moving all extremities, normal speech Results - Laboratory Findings CBC and BMP: 07/10/18 05:40 07/10/18 05:40 Abnormal lab findings: Abnormal Labs 07/09/18 07/09/18 07/09/18 23:59 23:59 23:59 Neut % (Auto) 85.3 H Lymph % (Auto) 5.6 L [place] % (Auto) 8.2 H Neut # (Auto) 8.6 H Lymph # (Auto) 0.6 L [place] # (Auto) Sodium 134 L Potassium Chloride 96 L BUN 37 H Creatinine 1.46 H Estimated GFR 36 L Random Glucose Alkaline Phosphatase 43 L Urine Protein 100 H Urine Ketones Trace H Urine Bacteria Rare H Urine Mucus Few H 07/10/18 07/10/18 05:40 05:40 Neut % (Auto) 82.0 H Lymph % (Auto) 6.4 L [place] % (Auto) 10.8 H Neut # (Auto) Lymph # (Auto) 0.6 L [place] # (Auto) 1.0 H Sodium Potassium 3.3 L Chloride BUN 36 H Creatinine 1.34 H Estimated GFR 39 L Random Glucose 70 L Alkaline Phosphatase Urine Protein Urine Ketones Urine Bacteria Urine Mucus - Diagnostic Findings Additional findings: Impressions Cervical Spine CT 07/09/18 22:57 CONCLUSION: 1. Intact cervical spine. 2. Degenerative disc disease at C5/C6. Chest X-Ray 07/09/18 22:57 CONCLUSION: No evidence of acute cardiopulmonary disease. Head CT 07/09/18 22:57 CONCLUSION: 1. Bilateral chronic subdural hematomas. Questionable superimposed acute component on the left but no significant change in size. Close clinical observation and a follow-up noncontrast head CT and approximately 24 hours is recommended. 2. Otherwise no evidence of acute intracranial hemorrhage/hematoma. There is no midline shift. 3. Atrophy and chronic white matter changes are again noted. 4. Shunted. No evidence of an associated acute complication. . Assessment and Plan - Assessment (1) Subdural hygroma Code(s): D18.1 - Lymphangioma, any site Status: Chronic (2) S/P GUEST SERVICE REPRESENTATIVE shunt Code(s): Z98.2 - Presence of cerebrospinal fluid drainage device Status: Chronic - Plan 68-year-old lady with a chronic history of a benign brain tumor resection as well as GUEST SERVICE REPRESENTATIVE shunt placement over 50 years ago and more recent shuntogram revealing the shunt is working and patent. She has bilateral chronic hygromatous collections left greater than right and more recent scan shows these collections are stable with a questionable small acute component versus subdural membrane. At this point plan is for nonsurgical management with a repeat CT scan of the head tomorrow morning. If this is stable then she can be discharged and will likely benefit from rehabilitation given her unsteady gait and risk for falls. Discussed with the sister who is in agreement.
--- NOTE | 2018-07-10 10:54 | P.PN ---
Subjective Interval history: Jonelle Rowland is a 68yo lady, well known to me, with medical history significant for brain tumor resection as a child with PAPER TESTER shunt placement decades ago admitted after a suspected fall. She has had roughly 6 weeks of neurologic changes, which have been slightly/slowly improving, which may have led to her suspected fall. In terms of neurologic symptoms, she has had the following for several weeks: shuffling gait, difficulty with word-finding, increased stuttering, and inability to complete some ADLs. Pt had undergone workup as an outpatient, including recent CT shuntogram which was normal, CT head with and without contrast with no new findings (unable to do MRI due to unknown type of shunt), urine culture which was negative, and lab work which was nonrevealing. On exam in my clinic one week ago, she was found to have shuffling gait with multipoint turn, some cogwheel rigidity in arms, apraxia (unable to demonstrate how she uses a spoon to eat). This note is written in conjunction with resident H&P dated 07/10/2018. This morning, she has no complaints. She is accompanied by her sister. Her sister feels like her word-finding has improved since last night, even improved from the baseline. She denies any headache, nausea, vomiting. Physical Exam Vital signs: Vital Signs 07/09/18 21:45 07/10/18 00:51 07/10/18 02:19 Temperature 97.9 F Pulse Rate 114 H 107 H 110 H Respiratory Rate 16 18 Blood Pressure 200/88 H 184/84 H 174/80 H Pulse Oximetry 97 98 99 07/10/18 05:52 07/10/18 08:00 07/10/18 09:00 Temperature 97.8 F Pulse Rate 100 H 100 H 100 H Respiratory Rate 18 15 Blood Pressure 163/79 H Pulse Oximetry 98 99 07/10/18 09:17 Temperature 97.8 F Pulse Rate 100 H Respiratory Rate 14 Blood Pressure 147/72 H Pulse Oximetry 99 Intake & Output 07/09/18 07/10/18 07/10/18 18:59 06:59 18:59 Intake Total 600 / 600 Balance 600 / 600 Weight 36.287 kg Intake: IV 600 / 600 NS Inj 500 ML @ Wide Open IV. 500 / 500 SIG BOLUS ONE Rx#:[id number] Rocephin Inj 1,000 MG In NS Inj 100 / 100 100 ML @ 200 mls/hr IV.SIG Q24H [facility] Rx#:[id number] Other: Date of Last Bowel Movement 07/09/18 As per resident H&P. Notable findings: Abdominal bruit noted. Neuro exam: Pt with some stuttering, but at baseline. Wordfinding is intact. Shuffling gait. Muscle stiffness, but able to elicit some cogwheeling at elbows bilaterally. Faint tremor noted on outstretched hands. Apraxia noted - able to demonstrate how to brush teeth and comb hair, but unable to demonstrate how to use a spoon. Negative Perdue's. No pronator drift. Results - Labs CBC & Chem 7: 07/10/18 05:40 07/10/18 05:40 Laboratory Results - last 24 hr 07/09/18 07/09/18 07/09/18 23:59 23:59 23:59 WBC 10.1 RBC 4.36 Hgb 13.8 Hct 39.5 MCV 90.5 MCH 31.6 MCHC 34.9 RDW 13.5 Plt Count 265 MPV 7.9 Neut % (Auto) 85.3 H Lymph % (Auto) 5.6 L [place] % (Auto) 8.2 H Eos % (Auto) 0.2 Baso % (Auto) 0.7 Neut # (Auto) 8.6 H Lymph # (Auto) 0.6 L [place] # (Auto) 0.8 Eos # (Auto) 0.0 Baso # (Auto) 0.1 WBC Differential . Differential Comment Auto diff final Sodium 134 L Potassium 3.5 Chloride 96 L Carbon Dioxide 24.5 Anion Gap 14 BUN 37 H Creatinine 1.46 H Estimated GFR 36 L Random Glucose 89 Calcium 9.0 Total Bilirubin 0.6 AST 15 ALT 14 Alkaline Phosphatase 43 L Total Protein 7.4 Albumin 4.1 Vitamin B12 Urine Color Straw Urine Clarity Clear Urine pH 6.0 Ur Specific [place] 1.006 Urine Protein 100 H Urine Glucose (UA) Negative Urine Ketones Trace H Urine Occult Blood Negative Urine Nitrate Negative Urine Bilirubin Negative Urine Urobilinogen Less than 2 Ur Leukocyte Esterase Negative Urine RBC 1 Urine WBC 2 Urine Bacteria Rare H Urine Mucus Few H Micro UA Comment Cath-culture ind Ur Microscopic Review Not Reportable Urine Culture Comments Cath-cult indicated 07/10/18 07/10/18 05:40 05:40 WBC 9.3 RBC 4.11 Hgb 12.8 Hct 37.8 MCV 92.0 MCH 31.1 MCHC 33.8 RDW 13.7 Plt Count 265 MPV 8.1 Neut % (Auto) 82.0 H Lymph % (Auto) 6.4 L [place] % (Auto) 10.8 H Eos % (Auto) 0.3 Baso % (Auto) 0.5 Neut # (Auto) 7.6 Lymph # (Auto) 0.6 L [place] # (Auto) 1.0 H Eos # (Auto) 0.0 Baso # (Auto) 0.0 WBC Differential . Differential Comment Auto diff final Sodium 136 Potassium 3.3 L Chloride 98 Carbon Dioxide 24.7 Anion Gap 13 BUN 36 H Creatinine 1.34 H Estimated GFR 39 L Random Glucose 70 L Calcium 8.7 Total Bilirubin AST ALT Alkaline Phosphatase Total Protein Albumin Vitamin B12 248 Urine Color Urine Clarity Urine pH Ur Specific [place] Urine Protein Urine Glucose (UA) Urine Ketones Urine Occult Blood Urine Nitrate Urine Bilirubin Urine Urobilinogen Ur Leukocyte Esterase Urine RBC Urine WBC Urine Bacteria Urine Mucus Micro UA Comment Ur Microscopic Review Urine Culture Comments - Imaging Impressions Cervical Spine CT 07/09/18 22:57 CONCLUSION: 1. Intact cervical spine. 2. Degenerative disc disease at C5/C6. Chest X-Ray 07/09/18 22:57 CONCLUSION: No evidence of acute cardiopulmonary disease. Head CT 07/09/18 22:57 CONCLUSION: 1. Bilateral chronic subdural hematomas. Questionable superimposed acute component on the left but no significant change in size. Close clinical observation and a follow-up noncontrast head CT and approximately 24 hours is recommended. 2. Otherwise no evidence of acute intracranial hemorrhage/hematoma. There is no midline shift. 3. Atrophy and chronic white matter changes are again noted. 4. Shunted. No evidence of an associated acute complication. . Assessment and Plan - Assessment (1) Subdural hematoma, post-traumatic Code(s): S06.5X9A - Traumatic subdural hemorrhage with loss of consciousness of unspecified duration, initial encounter Status: Acute Plan: Appreciate neurosurgery, who recommends monitoring and repeat CT in 24 hours. Pt with chronic subdural hematoma with possible acute component secondary to suspected fall. (2) Change in mental status Code(s): R41.82 - Altered mental status, unspecified Status: Chronic Plan: Symptoms have been present for approx 6 weeks. Unclear etiology. Work up as an outpatient has included: CT Shuntogram: Normal CT head with and without contrast: No acute changes, chronic subdural hematoma. Ammonia: WNL UCx: Nonrevealing TSH: WNL On exam, pt has some findings consistent with possible Parkinson disease - shuffling gait, apraxia, and cogwheeling. Unable to perform MRI brain, as it is unclear if her PAPER TESTER shunt has metal in it. Unable to get records from PAPER TESTER shunt placement >50 years ago (I attempted to get these records as an outpatient.) Consult neurology for input; consider low dose Sinemet. PT to eval and treat. (3) Urinary tract infection Code(s): N39.0 - Urinary tract infection, site not specified Status: Acute Plan: Rocephin. Await UCx. Asymptomatic. Of note, recent UCx nonrevealing. (4) Abdominal bruit Code(s): R09.89 - Other specified symptoms and signs involving the circulatory and respiratory systems Status: Acute Plan: Check US aorta to evaluate. (5) HTN (hypertension) Code(s): I10 - Essential (primary) hypertension Status: Chronic Plan: BP markedly elevated at admission, but improved with continuation of home medications. Will monitor. With patient's altered mental status, it is possible she has not been taking her medications as prescribed. (6) CKD (chronic kidney disease) Code(s): N18.9 - Chronic kidney disease, unspecified Status: Chronic Plan: Stable. Renally dose medications. (7) S/P PAPER TESTER shunt Code(s): Z98.2 - Presence of cerebrospinal fluid drainage device Status: Chronic Plan: Recent CT shuntogram demonstrated patent, functioning PAPER TESTER shunt. Appreciate neurosurgery. (8) Nutrition, metabolism, and development symptoms Code(s): R63.8 - Other symptoms and signs concerning food and fluid intake Status: Acute Plan: Will allow patient to eat today, as neurologic exam remains stable overnight. - Plan Discussed Condition With: Resident team, patient and patient's sister Radha - Attending Attestation I certify that inpatient stay is warranted for reasons documented in resident's H&P and that a two midnight stay is suspected. (1) Subdural hematoma, post-traumatic Qualifiers: Encounter type: subsequent encounter Loss of consciousness presence/duration : without LOC Qualified Code(s): S06.5X0D - Traumatic subdural hemorrhage without loss of consciousness, subsequent encounter (2) Change in mental status Qualifiers: Altered mental status type: unspecified Qualified Code(s): R41.82 - Altered mental status, unspecified (3) Urinary tract infection Qualifiers: Urinary tract infection type: acute cystitis Hematuria presence: without hematuria Qualified Code(s): N30.00 - Acute cystitis without hematuria (5) HTN (hypertension) Qualifiers: Hypertension type: essential hypertension Qualified Code(s): I10 - Essential (primary) hypertension
[2018-07-10] MEDS: Calcitriol 0.25 MCG Capsule PO SCH (11:34)
--- NOTE | 2018-07-10 16:20 | ECG ---
Date Performed: 07/10/2018 Time Performed: 00:17:48 PTAGE: 68 years EKG: SINUS TACHYCARDIA Since the previous tracing, no significant change noted ABNORMAL RHYTHM E CG PREVIOUS TRACING : 09/13/2012 11.12 DOCTOR: Eris Viveros Interpretating Date/Time 07/10/2018 16:17:14
--- NOTE | 2018-07-10 16:30 | P.CONNEU ---
History of Present Illness Service: Neurology Primary Care Provider: Patsy Grider MD Family Provider: Patsy Grider MD Chief Complaint: Falls History of Present Illness: 68-year-old female admitted for recurrent falls. CT brain scan demonstrated possible acute on chronic bilateral subdural hygroma/hematoma. Seen by neurosurgery. He said AIRCRAFT MANAGER shunt placed in an follow-up imaging on this and there is no occlusion. 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 Denies any headache neck pain spinal pain radicular symptoms any numbness tingling. Denies any vertigo. Could not give me a clear reason as to why she is falling or any prodromal symptoms. States he will normally fall forward. Review of Systems All other systems reviewed negative except as stated in HPI [facility] - History History Provided By: Patient, Family Member - Medical History Medical History: Medical History (Last Reviewed 07/10/18 @ 08:00 by Hema Maciel) HTN (hypertension) (Chronic) Anemia (Acute) CKD (chronic kidney disease) (Chronic) Arthritis (Acute) Brain tumor (Acute) - Surgical History Surgical History: Surgical History (Last Reviewed 07/10/18 @ 08:00 by Hema Maciel) S/P AIRCRAFT MANAGER shunt (Chronic) H/O mastectomy - Tobacco History Second Hand Smoke Exposure: No Tobacco Use In Past 30 Days: No Smoking Status: Never smoker - Alcohol History How Often Do You Have a Drink Containing Alcohol: Monthly or less - Substance Use History Substance History: No History of Abuse - Travel History Recent Travel in the [place] Within the Last 8 Weeks: No Recent Travel Out of the Country Within the Last 8 Weeks: No - Immunization History Tetanus Immunization: Unsure Hx Influenza Vaccine This Season: Yes Medications and Allergies Active Medications: Active Medications Amlodipine Besylate (Norvasc) 5 mg PO DAILY [facility] Last Admin: 07/10/18 11:33 Dose: Not Given Calcitriol (Rocaltrol) 0.25 mcg PO DAILY [facility] Last Admin: 07/10/18 11:34 Dose: Not Given Clonidine HCl (Catapres) 0.1 mg PO Q6H PRN PRN Reason: SEE LABEL COMMENTS Sodium Chloride (Ns Inj) 1,000 mls @ 76 mls/hr IV.CONT .[id number] [facility] Last Admin: 07/10/18 03:40 Dose: 100 mls/hr Ceftriaxone Sodium 1,000 mg/ (Sodium Chloride) 100 mls @ 200 mls/hr IV.SIG Q24H [facility] Losartan Potassium (Cozaar) 25 mg PO DAILY [facility] Last Admin: 07/10/18 09:30 Dose: 25 mg Sodium Chloride (Ns Flush) 2 ml IV.FLUSH PRN PRN PRN Reason: FLUSH AFTER USING IV ACCESS Allergies Allergy/AdvReac Type Severity Reaction Status Date / Time No Known Allergies Allergy Verified 07/09/18 21:51 Home Medications Medication Instructions Recorded Confirmed Type alendronate 70 mg PO 2XWEEK 06/21/18 07/10/18 History amlodipine 5 mg PO DAILY 06/21/18 07/10/18 History calcitriol 0.25 mcg PO DAILY 06/21/18 07/10/18 History calcium carbonate-vitamin D3 1 tab PO 06/21/18 History [Calcium 600 + D(3)] losartan 1 tab PO DAILY 06/21/18 07/10/18 History omega 3-owi-ynv-fish oil [Fish Oil] 1 tab PO DAILY 06/21/18 07/10/18 History Exam Vital signs: Vital Signs 07/09/18 21:45 07/10/18 00:51 07/10/18 02:19 Temperature 97.9 F Pulse Rate 114 H 107 H 110 H Respiratory Rate 16 18 Blood Pressure 200/88 H 184/84 H 174/80 H Pulse Oximetry 97 98 99 07/10/18 05:52 07/10/18 08:00 07/10/18 09:00 Temperature 97.8 F Pulse Rate 100 H 100 H 100 H Respiratory Rate 18 15 Blood Pressure 163/79 H Pulse Oximetry 98 99 07/10/18 09:17 Temperature 97.8 F Pulse Rate 100 H Respiratory Rate 14 Blood Pressure 147/72 H Pulse Oximetry 99 Intake & Output 07/09/18 07/10/18 07/10/18 18:59 06:59 18:59 Intake Total 600 / 600 Balance 600 / 600 Weight 36.287 kg Intake: IV 600 / 600 NS Inj 500 ML @ Wide Open IV. 500 / 500 SIG BOLUS ONE Rx#:[id number] Rocephin Inj 1,000 MG In NS Inj 100 / 100 100 ML @ 200 mls/hr IV.SIG Q24H [facility] Rx#:[id number] Other: Date of Last Bowel Movement 07/09/18 Narrative: Awake and alert oriented 2-3. Stuttering slightly dysarthric speech. OU visual loss no glucose and syrup weigher finger perception apparent. No facial asymmetry with occasional oral buccal dyskinesia, no temporal tenderness neck supple no involuntary movements, able raise all 4 extremity gravity thin extremities, reflexes trace plantarflex her no tremor or rigidity appreciated. No ankle edema noted. No clonus , pin intact all 4 limbs her gait not assessed secondary fall risk - Constitutional no acute distress - Routine HEENT Exam Head: Present: normocephalic Eye: Present: EOMI Results - Labs CBC & Chem 7: 07/10/18 05:40 07/10/18 05:40 Labs: Laboratory Results - last 24 hr 07/09/18 07/09/18 07/09/18 23:59 23:59 23:59 WBC 10.1 RBC 4.36 Hgb 13.8 Hct 39.5 MCV 90.5 MCH 31.6 MCHC 34.9 RDW 13.5 Plt Count 265 MPV 7.9 Neut % (Auto) 85.3 H Lymph % (Auto) 5.6 L [place] % (Auto) 8.2 H Eos % (Auto) 0.2 Baso % (Auto) 0.7 Neut # (Auto) 8.6 H Lymph # (Auto) 0.6 L [place] # (Auto) 0.8 Eos # (Auto) 0.0 Baso # (Auto) 0.1 WBC Differential . Differential Comment Auto diff final Sodium 134 L Potassium 3.5 Chloride 96 L Carbon Dioxide 24.5 Anion Gap 14 BUN 37 H Creatinine 1.46 H Estimated GFR 36 L Random Glucose 89 Calcium 9.0 Total Bilirubin 0.6 AST 15 ALT 14 Alkaline Phosphatase 43 L Total Protein 7.4 Albumin 4.1 Vitamin B12 Urine Color Straw Urine Clarity Clear Urine pH 6.0 Ur Specific [place] 1.006 Urine Protein 100 H Urine Glucose (UA) Negative Urine Ketones Trace H Urine Occult Blood Negative Urine Nitrate Negative Urine Bilirubin Negative Urine Urobilinogen Less than 2 Ur Leukocyte Esterase Negative Urine RBC 1 Urine WBC 2 Urine Bacteria Rare H Urine Mucus Few H Micro UA Comment Cath-culture ind Ur Microscopic Review Not Reportable Urine Culture Comments Cath-cult indicated 07/10/18 07/10/18 05:40 05:40 WBC 9.3 RBC 4.11 Hgb 12.8 Hct 37.8 MCV 92.0 MCH 31.1 MCHC 33.8 RDW 13.7 Plt Count 265 MPV 8.1 Neut % (Auto) 82.0 H Lymph % (Auto) 6.4 L [place] % (Auto) 10.8 H Eos % (Auto) 0.3 Baso % (Auto) 0.5 Neut # (Auto) 7.6 Lymph # (Auto) 0.6 L [place] # (Auto) 1.0 H Eos # (Auto) 0.0 Baso # (Auto) 0.0 WBC Differential . Differential Comment Auto diff final Sodium 136 Potassium 3.3 L Chloride 98 Carbon Dioxide 24.7 Anion Gap 13 BUN 36 H Creatinine 1.34 H Estimated GFR 39 L Random Glucose 70 L Calcium 8.7 Total Bilirubin AST ALT Alkaline Phosphatase Total Protein Albumin Vitamin B12 248 Urine Color Urine Clarity Urine pH Ur Specific [place] Urine Protein Urine Glucose (UA) Urine Ketones Urine Occult Blood Urine Nitrate Urine Bilirubin Urine Urobilinogen Ur Leukocyte Esterase Urine RBC Urine WBC Urine Bacteria Urine Mucus Micro UA Comment Ur Microscopic Review Urine Culture Comments - Imaging Impressions Cervical Spine CT 07/09/18 22:57 CONCLUSION: 1. Intact cervical spine. 2. Degenerative disc disease at C5/C6. Chest X-Ray 07/09/18 22:57 CONCLUSION: No evidence of acute cardiopulmonary disease. Head CT 07/09/18 22:57 CONCLUSION: 1. Bilateral chronic subdural hematomas. Questionable superimposed acute component on the left but no significant change in size. Close clinical observation and a follow-up noncontrast head CT and approximately 24 hours is recommended. 2. Otherwise no evidence of acute intracranial hemorrhage/hematoma. There is no midline shift. 3. Atrophy and chronic white matter changes are again noted. 4. Shunted. No evidence of an associated acute complication. . Review/Management - Diagnosis (1) Fall Code(s): W19.XXXA - Unspecified fall, initial encounter Status: Acute Current Visit: Yes (2) Subdural hematoma, post-traumatic Code(s): S06.5X9A - Traumatic subdural hemorrhage with loss of consciousness of unspecified duration, initial encounter Status: Acute Current Visit: Yes (3) Urinary tract infection Code(s): N39.0 - Urinary tract infection, site not specified Status: Acute Current Visit: Yes (4) HTN (hypertension) Code(s): I10 - Essential (primary) hypertension Status: Chronic Current Visit: No - Review/Management Plan: Recurrent falls over the past couple months. In a patient with vision loss. B12 level is low may be a possible factor in addition to poor p.o. intake low BMI, frail state No hyperreflexia or upper motor neuron signs or symptoms to suggest spinal cord lesion. No sensory loss on exam to suggest a neuropathy as a cause. Recommendation Balance therapy. She may benefit from inpatient rehabilitation B12 supplementation Nutritional support Further outpatient follow-up (2) Subdural hematoma, post-traumatic Qualifiers: Encounter type: subsequent encounter Loss of consciousness presence/duration : without LOC Qualified Code(s): S06.5X0D - Traumatic subdural hemorrhage without loss of consciousness, subsequent encounter (3) Urinary tract infection Qualifiers: Urinary tract infection type: acute cystitis Hematuria presence: without hematuria Qualified Code(s): N30.00 - Acute cystitis without hematuria (4) HTN (hypertension) Qualifiers: Hypertension type: essential hypertension Qualified Code(s): I10 - Essential (primary) hypertension
[2018-07-10] MEDS ORDERED: Acetaminophen 325 MG Tablet PO ONE (21:46)
[2018-07-11] MEDS: Sod Chloride 0.9% Inj 1,000 ML IV.CONT SCH (03:28)
[2018-07-11 08:55] LABS: Hemoglobin 12.3 gm/dL (11.6-15.3); Mean Corpuscular Hemoglobin 31.6 pg (27.0-34.0); Mean Corpuscular Volume 92.9 fL (80.0-100.0); Mean Platelet Volume 8.2 fL (7.0-11.0); Platelet Count 238 th/mm3 (150-450); Red Blood Count 3.88 mil/mm3 (4.00-5.30); Red Cell Distribution Width 13.7 % (11.6-17.2); White Blood Count 6.9 th/mm3 (4.0-11.0)
[2018-07-11] MEDS ORDERED: Acetaminophen 325 MG Tablet PO PRN (08:55)
[2018-07-11 09:36] LABS: Calcium 8.3 mg/dL (8.5-10.1); Carbon Dioxide 22.2 meq/L (21.0-32.0); Potassium 3.3 meq/L (3.5-5.1)
[2018-07-11] MEDS: Calcitriol 0.25 MCG Capsule PO SCH (09:36)
--- NOTE | 2018-07-11 09:42 | CT ---
EXAM DATE: 07/11/2018 9:36 AM EDT AGE/SEX: 68 years / Female INDICATIONS: Follow up intracerebral hemorrhage. CLINICAL DATA: This is the patient's subsequent encounter. Patient reports that signs and symptoms h ave been present for 3 days and indicates a pain score of 0/10. MEDICAL/SURGICAL HISTORY: . SAFETY EQUIPMENT TESTER shunt Brain tumor Hypertension Subdural hematoma . SAFETY EQUIPMENT TESTER shunt RADIATION DOSE: 35.29 CTDI (mGy) COMPARISON: [facility] [place], CT HEAD W/O CONTRAST, 07/09/2018. . TECHNIQUE: CT of the head without contrast. Using automated exposure control and adjustment of the mA and/or kV according to patient size, radiation dose was kept as low as reasonably achievable to ob tain optimal diagnostic quality images. DICOM format image data is available electronically for revi ew and comparison. FINDINGS: There are prominent calcifications of the vertebral and carotid arteries. There is mild diffuse promi nence of the CSF spaces, ventricles and cisterns. A right frontal ventriculostomy catheter is seen an d the tip terminates in the region of the right frontal horn. There are multiple remote lacunar infar cts in the basal ganglia regions. There are bilateral hypodense subdural collections again seen. This is not significantly changed. There are no definite acute areas of intracranial hemorrhage seen. No midline shift is identified. There is slight mass effect on the left frontal lobe again seen. CONCLUSION: 1. Stable appearance of the brain. . Electronically signed by: Slade Scott MD 07/11/2018 9:40 AM EDT
[2018-07-11] MEDS: amLODIPine 5 MG Tablet PO SCH (10:53)
--- NOTE | 2018-07-11 17:47 | P.PNFP ---
Subjective Interval history: Pt is doing well this morning, complaining of neck pain today, likely related to her fall. She denies any other complaints. She is eating and drinking ok. No fevers or chills, no chest pain, or shortness of breath. <Jerilyn Hough V - 07/11/18 17:46> Results - Labs Result diagrams: 07/11/18 08:00 07/13/18 05:46 <Pasty Grider - 07/13/18 17:09> Abnormal lab results 07/13/18 Range/Units 05:46 Sodium 133 L (136-145) meq/L BUN 33 H (7-18) mg/dL Creatinine 1.49 H (0.50-1.00) mg/dL Estimated GFR 35 L (>89) mL/min [facility] 07/13/18 05:46 Sodium 133 L Potassium 4.2 D Chloride 98 D Carbon Dioxide 24.2 BUN 33 H Creatinine 1.49 H Calcium 8.6 <Patsy Grider - 07/13/18 17:09> Abnormal lab results 07/11/18 07/11/18 Range/Units 08:00 08:00 RBC 3.88 L (4.00-5.30) mil/mm3 Potassium 3.3 L (3.5-5.1) meq/L BUN 32 H (7-18) mg/dL Creatinine 1.33 H (0.50-1.00) mg/dL Estimated GFR 40 L (>89) mL/min Calcium 8.3 L (8.5-10.1) mg/dL Short CBC 07/11/18 Range/Units 08:00 WBC 6.9 (4.0-11.0) th/mm3 Hgb 12.3 (11.6-15.3) gm/dL Hct 36.0 (35.0-46.0) % Plt Count 238 (150-450) th/mm3 [facility] 07/11/18 08:00 Sodium 140 Potassium 3.3 L Chloride 106 D Carbon Dioxide 22.2 BUN 32 H Creatinine 1.33 H Calcium 8.3 L <Jerilyn Hough V - 07/11/18 17:46> - Imaging Impressions Head CT 07/11/18 08:00 CONCLUSION: 1. Stable appearance of the brain. . <Jerilyn Hough V - 07/11/18 17:46> Physical Exam Vital signs: Vital Signs 07/12/18 20:00 07/13/18 00:00 07/13/18 04:00 Temperature 97.4 F L 98.2 F 98.1 F Pulse Rate 99 H 103 H 108 H Respiratory Rate 18 16 16 Blood Pressure 180/79 H 155/73 H 188/78 H Pulse Oximetry 100 99 98 07/13/18 08:00 07/13/18 09:00 07/13/18 09:57 Temperature 99.6 F Pulse Rate 102 H 92 H Respiratory Rate 16 Blood Pressure Pulse Oximetry 99 99 07/13/18 11:00 Temperature 97.6 F Pulse Rate 88 Respiratory Rate 16 Blood Pressure 137/66 Pulse Oximetry 100 Intake & Output 07/12/18 07/13/18 07/13/18 18:59 06:59 18:59 Intake Total 600 / 600 240 / 240 Balance 600 / 600 240 / 240 Intake: Oral 600 / 600 240 / 240 Other: # Voids 5 6 Date of Last Bowel Movement 07/11/18 07/11/18 <Patsy Grider - 07/13/18 17:09> Vital Signs 07/10/18 17:59 07/10/18 20:00 07/11/18 00:00 Temperature 98.0 F 97.8 F Pulse Rate 109 H 96 H Respiratory Rate 16 15 Blood Pressure 148/67 H 138/70 Pulse Oximetry 96 99 98 07/11/18 04:00 07/11/18 08:00 07/11/18 09:00 Temperature 98.5 F 98.6 F Pulse Rate 101 H 97 H 97 H Respiratory Rate 15 16 Blood Pressure 169/76 H 177/74 H Pulse Oximetry 98 99 07/11/18 10:50 07/11/18 12:00 07/11/18 16:00 Temperature 98.4 F 98.5 F Pulse Rate 94 H 102 H Respiratory Rate 16 16 Blood Pressure 169/88 H 185/88 H Pulse Oximetry 97 99 99 Intake & Output 07/10/18 07/11/18 07/11/18 18:59 06:59 18:59 Intake Total 1000 / 1000 1460 / 1460 Balance 1000 / 1000 1460 / 1460 Weight 32.9 kg Intake: IV 1000 / 1000 1100 / 1100 NS Inj 1,000 ML @ 76 mls/hr IV. 1000 / 1000 1000 / 1000 CONT .[id number] JANES Rx#:[id number] Rocephin Inj 1,000 MG In NS Inj 100 / 100 100 ML @ 200 mls/hr IV.SIG Q24H JANES Rx#:[id number] Oral 360 / 360 Other: # Voids 4 Date of Last Bowel Movement 07/09/18 07/09/18 <Jerilyn Hough V - 07/11/18 17:46> Narrative: GENERAL: elderly, underweight lady, in NAD SKIN: Warm and dry. HEAD: Normocephalic. Shunt felt on R side of scalp. EYES: No scleral icterus. No injection or drainage. Pt is blind. ENT: No nasal drainage noted. Mucous membranes pink. Airway patent. NECK: Supple, trachea midline. CARDIOVASCULAR: Regular rate and rhythm without murmurs, gallops, or rubs. Tachycardic. RESPIRATORY: Breath sounds equal bilaterally. No accessory muscle use. Minimal expiratory wheezing ABDOMEN/GI: Abdomen soft, non-tender, bowel sounds present, no rebound, no guarding. Abdominal bruit heard on L mid abdomen EXTREMITIES: No cyanosis or edema. NEUROLOGICAL: Awake and alert. Motor and sensory grossly within normal limits. <Jerilyn Hough V - 07/11/18 17:46> Assessment and Plan - Assessment (1) Change in mental status Code(s): R41.82 - Altered mental status, unspecified Status: Chronic (2) Abdominal bruit Code(s): R09.89 - Other specified symptoms and signs involving the circulatory and respiratory systems Status: Acute (3) HTN (hypertension) Code(s): I10 - Essential (primary) hypertension Status: Chronic (4) CKD (chronic kidney disease) Code(s): N18.9 - Chronic kidney disease, unspecified Status: Chronic (5) S/P JUDGE shunt Code(s): Z98.2 - Presence of cerebrospinal fluid drainage device Status: Chronic (6) Nutrition, metabolism, and development symptoms Code(s): R63.8 - Other symptoms and signs concerning food and fluid intake Status: Acute <Patsy Grider - 07/13/18 17:09> (1) Subdural hematoma, post-traumatic Code(s): S06.5X9A - Traumatic subdural hemorrhage with loss of consciousness of unspecified duration, initial encounter Status: Acute Plan: A/P: 68-year-old blind female with s/p JUDGE shunt and HTN presents to the ED due to fall secondary to neurological symptoms. Patient was currently being worked up for neurological symptoms outpatient. Workup has included negative CT shuntogram, negative UA w/ Ucx, hyponatremia ( 129) and ARF (Cr. 1.77) on BMP, normal TSH, and normal ammonia. At last office visit, patient had CT of brain with and without contrast ordered on 07/03 that demonstrated bilateral chronic subdural hygromas and chronic bilateral old basal ganglia lacunar infarcts. Patient has unable to get an MRI of brain due to unknown type of JUDGE shunt. Patient was referred to neurology, but has not seen yet. DDx: Parkinson vs Alz's vs malignancy vs delirium Labs & Imaging: -CBC unremarkable -BMP, hyponatremia (134), BUN (37), and Cr (1.46) -UA positive for proteins, trace ketones, rare bacteria, and mucus -Urine culture pending -Chest x-ray negative -EKG demonstrates sinus tachycardia with a rate of 112, QRS duration 74 ms, QTC 393ms. No T-wave or ST changes. -Head CT demonstrated bilateral chronic subdural hematomas. Questionable superimposed acute component on the left but no significant change in size. Close clinical observation and will follow-up with noncontrasted CT in approximately 24 hours. Otherwise, no evidence of acute intracranial hemorrhage /hematoma. There is no midline shift. Atrophy and chronic white matter changes are again noted. Shunted. No evidence of associated acute palpation. -Cervical CT, intact cervical spine and degenerative disc disease at C5/C6 Plan: Repeat this morning CT scan w/o acute bleed Will continue to monitor for acute changes (2) Change in mental status Code(s): R41.82 - Altered mental status, unspecified Status: Chronic Plan: Symptoms have been present for approx 6 weeks. Unclear etiology. Work up as an outpatient has included: CT Shuntogram: Normal CT head with and without contrast: No acute changes, chronic subdural hematoma. Ammonia: WNL UCx: Nonrevealing TSH: WNL On exam, pt has some findings consistent with possible Parkinson disease - shuffling gait, apraxia, and cogwheeling. Unable to perform MRI brain, as it is unclear if her JUDGE shunt has metal in it. Unable to get records from JUDGE shunt placement >50 years ago PT to eval and treat. Neurology consulted, recommendations: Balance therapy. She may benefit from inpatient rehabilitation B12 supplementation Nutritional support Further outpatient follow-up (3) Urinary tract infection Code(s): N39.0 - Urinary tract infection, site not specified Status: Acute Plan: UA positive for bacteria. s/p Keflex 500 mg p.o. once in the ED. - Rocephin 1000 mg IV q24h (07/09-07/11) - Cultures positive for Klebsiella and E. Coli, both susceptible to Ceftriaxone. Will do last dose today. (4) Abdominal bruit Code(s): R09.89 - Other specified symptoms and signs involving the circulatory and respiratory systems Status: Acute Plan: Abdominal bruit heard on physical exam. -Aorta US ordered (5) HTN (hypertension) Code(s): I10 - Essential (primary) hypertension Status: Chronic Plan: Patient noncompliant with antihypertensives at home. Continue amlodipine 5 mg p.o. daily and losartan 25 mg p.o. daily Clonidine 0.1 mg p.o. every 6 hours as needed for blood pressure > 180/100 (6) CKD (chronic kidney disease) Code(s): N18.9 - Chronic kidney disease, unspecified Status: Chronic Plan: Baseline creatinine of 1.3. BUN of 37 and creatinine 1.46 on BMP Creatinine today 1.33 - baseline Discontinued IV fluids (7) S/P JUDGE shunt Code(s): Z98.2 - Presence of cerebrospinal fluid drainage device Status: Chronic Plan: Patient had a JUDGE shunt placed at age 10 due to brain tumor. Unknown type of shunt. Patient had procedure done at [facility]. Likely chart was destroyed. (8) Nutrition, metabolism, and development symptoms Code(s): R63.8 - Other symptoms and signs concerning food and fluid intake Status: Acute Plan: Diet: Regular diet Fluids: PO DVT ppx: SCDs, pharmacological ppx contraindicated due to acute subdural hematoma PT consulted Case Management consulted <Jerilyn Hough V - 07/11/18 17:21> - Assessment and Plan parkinson vs alz's vs maglinancy vs delirium <Jerilyn Hough V - 07/11/18 17:46> - Attending Attestation Patient seen and examined, discussed with resident team on day of documentation. I agree with assessment and management as documented and discussed with me. Pt without complaints. On exam, she remains with mild cogwheel rigidity, shuffling gait, and apraxia. Continue work with PT. <CheoPatsy - 07/13/18 17:09> <Jerilyn Hough V - Last Filed: 07/11/18 17:21> (1) Subdural hematoma, post-traumatic Qualifiers: Encounter type: subsequent encounter Loss of consciousness presence/duration : without LOC Qualified Code(s): S06.5X0D - Traumatic subdural hemorrhage without loss of consciousness, subsequent encounter (2) Change in mental status Qualifiers: Altered mental status type: unspecified Qualified Code(s): R41.82 - Altered mental status, unspecified (3) Urinary tract infection Qualifiers: Urinary tract infection type: acute cystitis Hematuria presence: without hematuria Qualified Code(s): N30.00 - Acute cystitis without hematuria (5) HTN (hypertension) Qualifiers: Hypertension type: essential hypertension Qualified Code(s): I10 - Essential (primary) hypertension <aPtsy Grider - Last Filed: 07/13/18 17:09> (1) Change in mental status Qualifiers: Altered mental status type: unspecified Qualified Code(s): R41.82 - Altered mental status, unspecified (3) HTN (hypertension) Qualifiers: Hypertension type: essential hypertension Qualified Code(s): I10 - Essential (primary) hypertension <Jerilyn Hough V - Last Filed: 07/11/18 17:21> (1) Subdural hematoma, post-traumatic Qualifiers: Encounter type: subsequent encounter Loss of consciousness presence/duration : without LOC Qualified Code(s): S06.5X0D - Traumatic subdural hemorrhage without loss of consciousness, subsequent encounter (2) Change in mental status Qualifiers: Altered mental status type: unspecified Qualified Code(s): R41.82 - Altered mental status, unspecified (3) Urinary tract infection Qualifiers: Urinary tract infection type: acute cystitis Hematuria presence: without hematuria Qualified Code(s): N30.00 - Acute cystitis without hematuria (5) HTN (hypertension) Qualifiers: Hypertension type: essential hypertension Qualified Code(s): I10 - Essential (primary) hypertension <Patsy Grider - Last Filed: 07/13/18 17:09> (1) Change in mental status Qualifiers: Altered mental status type: unspecified Qualified Code(s): R41.82 - Altered mental status, unspecified (3) HTN (hypertension) Qualifiers: Hypertension type: essential hypertension Qualified Code(s): I10 - Essential (primary) hypertension
--- NOTE | 2018-07-11 17:50 | P.PNNS ---
Subjective Interval history: Pt awake and alert. Sitting up in chair. Follows commands well. No headache. <Tim Regalado - Last Filed: 07/11/18 17:41> Physical Exam Vital signs: Vital Signs 07/10/18 17:59 07/10/18 20:00 07/11/18 00:00 Temperature 98.0 F 97.8 F Pulse Rate 109 H 96 H Respiratory Rate 16 15 Blood Pressure 148/67 H 138/70 Pulse Oximetry 96 99 98 07/11/18 04:00 07/11/18 08:00 07/11/18 09:00 Temperature 98.5 F 98.6 F Pulse Rate 101 H 97 H 97 H Respiratory Rate 15 16 Blood Pressure 169/76 H 177/74 H Pulse Oximetry 98 99 07/11/18 10:50 07/11/18 12:00 07/11/18 16:00 Temperature 98.4 F 98.5 F Pulse Rate 94 H 102 H Respiratory Rate 16 16 Blood Pressure 169/88 H 185/88 H Pulse Oximetry 97 99 99 Intake & Output 07/10/18 07/11/18 07/11/18 18:59 06:59 18:59 Intake Total 1000 / 1000 1460 / 1460 Balance 1000 / 1000 1460 / 1460 Weight 32.9 kg Intake: IV 1000 / 1000 1100 / 1100 NS Inj 1,000 ML @ 76 mls/hr IV. 1000 / 1000 1000 / 1000 CONT .[id number] JANES Rx#:[id number] Rocephin Inj 1,000 MG In NS Inj 100 / 100 100 ML @ 200 mls/hr IV.SIG Q24H JANES Rx#:[id number] Oral 360 / 360 Other: # Voids 4 Date of Last Bowel Movement 07/09/18 07/09/18 - Constitutional no acute distress - Routine HEENT Exam Head: Present: atraumatic. Absent: normocephalic (Right FUR FEEDER shunt in place.) Eye: Present: PERRL (Pupils 2mm bilaterally.). Absent: conjunctival icterus ENT: Present: oropharynx clear - Routine Neck Exam Present: trachea midline - Routine Respiratory Exam Present: CTA bilaterally. Absent: respiratory distress, rhonchi, wheezes - Routine Cardiovascular Exam Present: RRR, S1, S2. Absent: murmur - Routine Abdominal Exam Present: soft, normoactive bowel sounds. Absent: distended, firm - Routine Extremities Exam Absent: cyanosis - Routine Skin Exam Absent: cyanosis, erythema - Routine Neurological Exam Present: alert, altered mental status, moving all extremities. Absent: motor deficit (Pt has a frail body habitus and was told she weighs less than 70 pounds.) - Routine Psychiatric Exam Present: cooperative. Absent: agitated <Tim Regalado - Last Filed: 07/11/18 17:41> Vital signs: Vital Signs 07/10/18 17:59 07/10/18 20:00 07/11/18 00:00 Temperature 98.0 F 97.8 F Pulse Rate 109 H 96 H Respiratory Rate 16 15 Blood Pressure 148/67 H 138/70 Pulse Oximetry 96 99 98 07/11/18 04:00 07/11/18 08:00 07/11/18 09:00 Temperature 98.5 F 98.6 F Pulse Rate 101 H 97 H 97 H Respiratory Rate 15 16 Blood Pressure 169/76 H 177/74 H Pulse Oximetry 98 99 07/11/18 10:50 07/11/18 12:00 07/11/18 16:00 Temperature 98.4 F 98.5 F Pulse Rate 94 H 102 H Respiratory Rate 16 16 Blood Pressure 169/88 H 185/88 H Pulse Oximetry 97 99 99 Intake & Output 07/10/18 07/11/18 07/11/18 18:59 06:59 18:59 Intake Total 1000 / 1000 1460 / 1460 Balance 1000 / 1000 1460 / 1460 Weight 32.9 kg Intake: IV 1000 / 1000 1100 / 1100 NS Inj 1,000 ML @ 76 mls/hr IV. 1000 / 1000 1000 / 1000 CONT .[id number] JANES Rx#:[id number] Rocephin Inj 1,000 MG In NS Inj 100 / 100 100 ML @ 200 mls/hr IV.SIG Q24H JANES Rx#:[id number] Oral 360 / 360 Other: # Voids 4 Date of Last Bowel Movement 07/09/18 07/09/18 <Percy Dias - Last Filed: 07/11/18 17:55> Assessment and Plan - Plan A: 68-year-old lady with a chronic history of a benign brain tumor resection as well as FUR FEEDER shunt placement over 50 years ago and more recent shuntogram revealing the shunt is working and patent. She has bilateral chronic hygromatous collections left greater than right and more recent scan shows these collections are stable with a questionable small acute component versus subdural membrane. Follow up CT head is stable. P: Discussed with Dr. Dias. Follow up CT is stable, Neurosurgically stable for rehab placement when medically stable. Continue with rehab efforts while here in hospital. Follow up with pcp after discharge <Tim Regalado - Last Filed: 07/11/18 17:41> - Assessment (1) Subdural hygroma Code(s): D18.1 - Lymphangioma, any site Status: Chronic (2) S/P FUR FEEDER shunt Code(s): Z98.2 - Presence of cerebrospinal fluid drainage device Status: Chronic - Attending Attestation The exam, history, and the medical decision-making described in the above note were completed with the assistance of the mid-level provider. I reviewed and agree with the findings presented. I attest that I had a [id number] encounter with the patient on the same day, and personally performed and documented my assessment and findings in the medical record. Stable exam and follow-up CT scan of the head with a chronic findings. No neurosurgical intervention planned and will see her on an as-needed basis at this point. <Percy Dias - Last Filed: 07/11/18 17:55>
--- NOTE | 2018-07-11 18:32 | US ---
EXAM DATE: 07/11/2018 6:28 PM EDT AGE/SEX: 68 years / Female INDICATIONS: Abdominal bruit. CLINICAL DATA: This is the patient's initial encounter. Patient reports that signs and symptoms have been present for 1 day and indicates a pain score of 0/10. MEDICAL/SURGICAL HISTORY: Hypertension. Anemia. Arthritis. Brain tumor. Chronic kidney disease. . Mastectomy. 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 COMPARISON: No prior exams available for comparison. MEASUREMENTS (AP x TRANSVERSE): Proximal:__1.6 x 1.6 cm Mid:__0.7 x 0.7 cm Distal:__0.5 x 0.5 cm Right Common Iliac:__0.5 x 0.6 cm Left Common Iliac:__0.5 x 0.6 cm FINDINGS: Aorta: Moderate- severe atherosclerotic disease. Other: None. CONCLUSION: Atherosclerotic change with narrowing of the distal aorta. An aneurysm is not present. Electronically signed by: Robert Rodgers MD 07/11/2018 6:30 PM EDT
[2018-07-12 08:06] LABS: Calcium 8.4 mg/dL (8.5-10.1); Carbon Dioxide 24.5 meq/L (21.0-32.0); Potassium 5.1 meq/L (3.5-5.1)
[2018-07-12] MEDS: Calcitriol 0.25 MCG Capsule PO SCH (08:59)
[2018-07-12] MEDS: amLODIPine 5 MG Tablet PO SCH (08:59)
[2018-07-12] MEDS ORDERED: amLODIPine 5 MG Tablet PO SCH (17:00)
--- NOTE | 2018-07-12 18:01 | P.PNFP ---
Subjective Interval history: PT doing well today, she denies any pain. She is eating and drinking ok. Sister at bed side. She denies any chest pain, shortness of breath, fevers or chills. She is urinating ok and denies any burning with urination. She is having BMs. <Jerilyn Hough V - 07/12/18 18:01> Results - Labs Result diagrams: 07/11/18 08:00 07/13/18 05:46 <Patsy Grider - 07/13/18 17:13> Abnormal lab results 07/13/18 Range/Units 05:46 Sodium 133 L (136-145) meq/L BUN 33 H (7-18) mg/dL Creatinine 1.49 H (0.50-1.00) mg/dL Estimated GFR 35 L (>89) mL/min [facility] 07/13/18 05:46 Sodium 133 L Potassium 4.2 D Chloride 98 D Carbon Dioxide 24.2 BUN 33 H Creatinine 1.49 H Calcium 8.6 <Patsy Grider - 07/13/18 17:13> Abnormal lab results 07/12/18 Range/Units 06:53 Chloride 108 H (98-107) meq/L BUN 33 H (7-18) mg/dL Creatinine 1.32 H (0.50-1.00) mg/dL Estimated GFR 40 L (>89) mL/min Calcium 8.4 L (8.5-10.1) mg/dL [facility] 07/12/18 06:53 Sodium 141 Potassium 5.1 D Chloride 108 H Carbon Dioxide 24.5 BUN 33 H Creatinine 1.32 H Calcium 8.4 L <Jerilyn Hough V - 07/12/18 18:01> - Imaging Impressions Aorta Ultrasound 07/11/18 00:00 CONCLUSION: Atherosclerotic change with narrowing of the distal aorta. An aneurysm is not present. <Jerilyn Hough V - 07/12/18 18:01> Physical Exam Vital signs: Vital Signs 07/12/18 20:00 07/13/18 00:00 07/13/18 04:00 Temperature 97.4 F L 98.2 F 98.1 F Pulse Rate 99 H 103 H 108 H Respiratory Rate 18 16 16 Blood Pressure 180/79 H 155/73 H 188/78 H Pulse Oximetry 100 99 98 07/13/18 08:00 08/31/18 09:00 07/13/18 09:57 Temperature 99.6 F Pulse Rate 102 H 92 H Respiratory Rate 16 Blood Pressure Pulse Oximetry 99 99 07/13/18 11:00 Temperature 97.6 F Pulse Rate 88 Respiratory Rate 16 Blood Pressure 137/66 Pulse Oximetry 100 Intake & Output 07/12/18 07/13/18 07/13/18 18:59 06:59 18:59 Intake Total 600 / 600 240 / 240 Balance 600 / 600 240 / 240 Intake: Oral 600 / 600 240 / 240 Other: # Voids 5 6 Date of Last Bowel Movement 07/11/18 07/11/18 <Patsy Grider - 07/13/18 17:13> Vital Signs 07/11/18 20:00 07/12/18 00:00 07/12/18 04:00 Temperature 98.5 F 98.3 F 98.5 F Pulse Rate 97 H 84 94 H Respiratory Rate 15 15 17 Blood Pressure 123/58 L 135/68 162/79 H Pulse Oximetry 97 100 94 L 07/12/18 08:00 07/12/18 09:00 07/12/18 11:57 Temperature 98.5 F 97.9 F Pulse Rate 85 92 H 86 Respiratory Rate 14 16 Blood Pressure 163/76 H 155/69 H Pulse Oximetry 99 100 Intake & Output 07/11/18 07/12/18 07/12/18 18:59 06:59 18:59 Intake Total 500 / 500 Output Total 1 / 4 / 4 Balance 499 / 499 -4 / -4 Weight 32.8 kg Intake: Oral 500 / 500 Output: Urine 4 / 4 Stool / Other: # Voids 5 Date of Last Bowel Movement 07/11/18 07/11/18 <Mari ElliottJerilyn cook V - 07/12/18 18:01> Narrative: GENERAL: elderly, underweight lady, in NAD SKIN: Warm and dry. HEAD: Normocephalic. Shunt felt on R side of scalp. EYES: No scleral icterus. No injection or drainage. Pt is blind. ENT: No nasal drainage noted. Mucous membranes pink. Airway patent. NECK: Supple, trachea midline. CARDIOVASCULAR: Regular rate and rhythm without murmurs, gallops, or rubs. Tachycardic. RESPIRATORY: Breath sounds equal bilaterally. No accessory muscle use. Clear to auscultation ABDOMEN/GI: Abdomen soft, non-tender, bowel sounds present, no rebound, no guarding. Abdominal bruit heard on L mid abdomen EXTREMITIES: No cyanosis or edema. NEUROLOGICAL: Awake and alert. Motor and sensory grossly within normal limits. <Jerilyn Hough V - 07/12/18 18:01> Assessment and Plan - Assessment (1) Change in mental status Code(s): R41.82 - Altered mental status, unspecified Status: Chronic (2) Abdominal bruit Code(s): R09.89 - Other specified symptoms and signs involving the circulatory and respiratory systems Status: Acute (3) HTN (hypertension) Code(s): I10 - Essential (primary) hypertension Status: Chronic (4) CKD (chronic kidney disease) Code(s): N18.9 - Chronic kidney disease, unspecified Status: Chronic (5) S/P [employer] shunt Code(s): Z98.2 - Presence of cerebrospinal fluid drainage device Status: Chronic (6) Nutrition, metabolism, and development symptoms Code(s): R63.8 - Other symptoms and signs concerning food and fluid intake Status: Acute <Patsy Grider - 07/13/18 17:13> (1) Subdural hematoma, post-traumatic Code(s): S06.5X9A - Traumatic subdural hemorrhage with loss of consciousness of unspecified duration, initial encounter Status: Resolved Plan: A/P: 68-year-old blind female with s/p BE[employer] W[employer] shunt and HTN presents to the ED due to fall secondary to neurological symptoms. Patient was currently being worked up for neurological symptoms outpatient. Workup has included negative CT shuntogram, negative UA w/ Ucx, hyponatremia ( 129) and ARF (Cr. 1.77) on BMP, normal TSH, and normal ammonia. At last office visit, patient had CT of brain with and without contrast ordered on 07/03 that demonstrated bilateral chronic subdural hygromas and chronic bilateral old basal ganglia lacunar infarcts. Patient has unable to get an MRI of brain due to unknown type of BE[employer] W[employer] shunt. Patient was referred to neurology, but has not seen yet. DDx: Parkinson vs Alz's vs malignancy vs delirium Labs & Imaging: -CBC unremarkable -BMP, hyponatremia (134), BUN (37), and Cr (1.46) -UA positive for proteins, trace ketones, rare bacteria, and mucus -Urine culture pending -Chest x-ray negative -EKG demonstrates sinus tachycardia with a rate of 112, QRS duration 74 ms, QTC 393ms. No T-wave or ST changes. -Head CT demonstrated bilateral chronic subdural hematomas. Questionable superimposed acute component on the left but no significant change in size. Close clinical observation and will follow-up with noncontrasted CT in approximately 24 hours. Otherwise, no evidence of acute intracranial hemorrhage /hematoma. There is no midline shift. Atrophy and chronic white matter changes are again noted. Shunted. No evidence of associated acute palpation. -Cervical CT, intact cervical spine and degenerative disc disease at C5/C6 Plan: Repeat this morning CT scan w/o acute bleed Neurosurgery cleared patient. No surgical intervention needed. (2) Change in mental status Code(s): R41.82 - Altered mental status, unspecified Status: Chronic Plan: Symptoms have been present for approx 6 weeks. Unclear etiology. Work up as an outpatient has included: CT Shuntogram: Normal CT head with and without contrast: No acute changes, chronic subdural hematoma. Ammonia: WNL UCx: Nonrevealing TSH: WNL On exam, pt has some findings consistent with possible Parkinson disease - shuffling gait, apraxia, and cogwheeling. Unable to perform MRI brain, as it is unclear if her [employer] shunt has metal in it. Unable to get records from BEAD WIRE TAPER shunt placement >50 years ago PT to eval and treat. Neurology consulted, recommendations: Balance therapy. She may benefit from inpatient rehabilitation B12 supplementation Nutritional support Further outpatient follow-up Due to our physical exam findings and extensive discussion with Pt's sister, we will start Sinemet 25/100 TID today. - Pt to follow up outpatient with PCP and possible neurology. (3) Urinary tract infection Code(s): N39.0 - Urinary tract infection, site not specified Status: Resolved Plan: UA positive for bacteria. s/p Keflex 500 mg p.o. once in the ED. - Rocephin 1000 mg IV q24h (07/09-07/11) - Cultures positive for Klebsiella and E. Coli, both susceptible to Ceftriaxone. Will do last dose today. (4) Abdominal bruit Code(s): R09.89 - Other specified symptoms and signs involving the circulatory and respiratory systems Status: Acute Plan: Abdominal bruit heard on physical exam. -Aorta US w/ aortic stenosis but not aneurism. (5) HTN (hypertension) Code(s): I10 - Essential (primary) hypertension Status: Chronic Plan: Patient noncompliant with antihypertensives at home. Continue losartan 25 mg p.o. daily Increase amlodipine 5 mg to 10 mg p.o. daily and Clonidine 0.1 mg p.o. every 6 hours as needed for blood pressure > 180/100 (6) CKD (chronic kidney disease) Code(s): N18.9 - Chronic kidney disease, unspecified Status: Chronic Plan: Baseline creatinine of 1.3. BUN of 37 and creatinine 1.46 on BMP Creatinine today 1.32 - baseline (7) S/P BE[employer] shunt Code(s): Z98.2 - Presence of cerebrospinal fluid drainage device Status: Chronic Plan: Patient had a BEAD W[employer] TAPER shunt placed at age 10 due to brain tumor. Unknown type of shunt. Patient had procedure done at [facility]. Likely chart was destroyed. (8) Nutrition, metabolism, and development symptoms Code(s): R63.8 - Other symptoms and signs concerning food and fluid intake Status: Acute Plan: Diet: Regular diet Fluids: PO DVT ppx: SCDs, pharmacological ppx contraindicated due to acute subdural hematoma PT consulted Case Management consulted <Jerilyn Hough V - 07/12/18 17:46> - Assessment and Plan Pt presented to ED with a history of a fall at home and bleeding on her external ear. CT scans x2 (24hrs apart) were cleared and no intervention per neurosurgery was needed. Pt with relatively new onset of mental status change (4 -6 weeks), neurology evaluated, and PCP evaluated. Pt will be started on Sinemet today. She is stable and we will anticipate discharge tomorrow to a SNF. <Jerilyn Hough V - 07/12/18 18:01> - Attending Attestation Patient seen and examined, discussed with resident team on day of documentation. I agree with assessment and management as documented and discussed with me. Lengthy conversation with patient and sister about her clinical course. Pt and sister would like to start Sinemet. Discussed risks, benefits, side effects. <Patsy Grider - 07/13/18 17:13> <Jerilyn Hough V - Last Filed: 07/12/18 17:46> (1) Subdural hematoma, post-traumatic Qualifiers: Encounter type: subsequent encounter Loss of consciousness presence/duration : without LOC Qualified Code(s): S06.5X0D - Traumatic subdural hemorrhage without loss of consciousness, subsequent encounter (2) Change in mental status Qualifiers: Altered mental status type: unspecified Qualified Code(s): R41.82 - Altered mental status, unspecified (3) Urinary tract infection Qualifiers: Urinary tract infection type: acute cystitis Hematuria presence: without hematuria Qualified Code(s): N30.00 - Acute cystitis without hematuria (5) HTN (hypertension) Qualifiers: Hypertension type: essential hypertension Qualified Code(s): I10 - Essential (primary) hypertension <Patsy Grider - Last Filed: 07/13/18 17:13> (1) Change in mental status Qualifiers: Altered mental status type: unspecified Qualified Code(s): R41.82 - Altered mental status, unspecified (3) HTN (hypertension) Qualifiers: Hypertension type: essential hypertension Qualified Code(s): I10 - Essential (primary) hypertension <Jerilyn Hough V - Last Filed: 07/12/18 17:46> (1) Subdural hematoma, post-traumatic Qualifiers: Encounter type: subsequent encounter Loss of consciousness presence/duration : without LOC Qualified Code(s): S06.5X0D - Traumatic subdural hemorrhage without loss of consciousness, subsequent encounter (2) Change in mental status Qualifiers: Altered mental status type: unspecified Qualified Code(s): R41.82 - Altered mental status, unspecified (3) Urinary tract infection Qualifiers: Urinary tract infection type: acute cystitis Hematuria presence: without hematuria Qualified Code(s): N30.00 - Acute cystitis without hematuria (5) HTN (hypertension) Qualifiers: Hypertension type: essential hypertension Qualified Code(s): I10 - Essential (primary) hypertension <Patsy Grider - Last Filed: 07/13/18 17:13> (1) Change in mental status Qualifiers: Altered mental status type: unspecified Qualified Code(s): R41.82 - Altered mental status, unspecified (3) HTN (hypertension) Qualifiers: Hypertension type: essential hypertension Qualified Code(s): I10 - Essential (primary) hypertension
[2018-07-13 00:34] VITALS: RESP 16
[2018-07-13 07:04] LABS: Calcium 8.6 mg/dL (8.5-10.1); Carbon Dioxide 24.2 meq/L (21.0-32.0); Potassium 4.2 meq/L (3.5-5.1)
[2018-07-13] MEDS: Calcitriol 0.25 MCG Capsule PO SCH (08:53)
--- NOTE | 2018-07-13 11:44 | P.PNFP ---
Subjective Interval history: Pt doing well this morning, has no complains. She is resting in bed. Sister said last night she had a really hard time walking and trying to go to the restroom. She denies any pain. <Jerilyn Hough V - 07/13/18 18:09> Results - Labs Result diagrams: 07/11/18 08:00 07/13/18 05:46 <Patsy Grider - 07/13/18 21:01> Abnormal lab results 07/13/18 Range/Units 05:46 Sodium 133 L (136-145) meq/L BUN 33 H (7-18) mg/dL Creatinine 1.49 H (0.50-1.00) mg/dL Estimated GFR 35 L (>89) mL/min BMP 07/13/18 05:46 Sodium 133 L Potassium 4.2 D Chloride 98 D Carbon Dioxide 24.2 BUN 33 H Creatinine 1.49 H Calcium 8.6 <Patsy Grider - 07/13/18 21:01> Abnormal lab results 07/13/18 Range/Units 05:46 Sodium 133 L (136-145) meq/L BUN 33 H (7-18) mg/dL Creatinine 1.49 H (0.50-1.00) mg/dL Estimated GFR 35 L (>89) mL/min BMP 07/13/18 05:46 Sodium 133 L Potassium 4.2 D Chloride 98 D Carbon Dioxide 24.2 BUN 33 H Creatinine 1.49 H Calcium 8.6 <Jerilyn Hough V - 07/13/18 11:44> Physical Exam Vital signs: Vital Signs 07/13/18 00:00 07/13/18 04:00 07/13/18 08:00 Temperature 98.2 F 98.1 F 99.6 F Pulse Rate 103 H 108 H 102 H Respiratory Rate 16 16 16 Blood Pressure 155/73 H 188/78 H Pulse Oximetry 99 98 99 07/13/18 09:00 07/13/18 09:57 07/13/18 11:00 Temperature 97.6 F Pulse Rate 92 H 88 Respiratory Rate 16 Blood Pressure 137/66 Pulse Oximetry 99 100 Intake & Output 07/13/18 07/13/18 07/14/18 06:59 18:59 06:59 Intake Total 240 / 240 Balance 240 / 240 Intake: Oral 240 / 240 Other: # Voids 6 Date of Last Bowel Movement 07/11/18 <Patsy Grider - 07/13/18 21:01> Vital Signs 07/12/18 11:57 07/12/18 16:00 07/12/18 20:00 Temperature 97.9 F 97.7 F 97.4 F L Pulse Rate 86 96 H 99 H Respiratory Rate 16 16 18 Blood Pressure 155/69 H 147/73 H 180/79 H Pulse Oximetry 100 100 100 07/13/18 00:00 07/13/18 04:00 07/13/18 08:00 Temperature 98.2 F 98.1 F 99.6 F Pulse Rate 103 H 108 H 102 H Respiratory Rate 16 16 16 Blood Pressure 155/73 H 188/78 H Pulse Oximetry 99 98 99 07/13/18 09:00 07/13/18 09:57 Temperature Pulse Rate 92 H Respiratory Rate Blood Pressure Pulse Oximetry 99 Intake & Output 07/12/18 07/13/18 07/13/18 18:59 06:59 18:59 Intake Total 600 / 600 240 / 240 Balance 600 / 600 240 / 240 Intake: Oral 600 / 600 240 / 240 Other: # Voids 5 6 Date of Last Bowel Movement 07/11/18 07/11/18 <Mari PereziraJerilyn Ferris - 07/13/18 11:44> Narrative: GENERAL: elderly, underweight lady, in NAD SKIN: Warm and dry. HEAD: Normocephalic. Shunt felt on R side of scalp. EYES: No scleral icterus. No injection or drainage. Pt is blind. ENT: No nasal drainage noted. Mucous membranes pink. Airway patent. NECK: Supple, trachea midline. CARDIOVASCULAR: Regular rate and rhythm without murmurs, gallops, or rubs. Tachycardic. RESPIRATORY: Breath sounds equal bilaterally. No accessory muscle use. Clear to auscultation ABDOMEN/GI: Abdomen soft, non-tender, bowel sounds present, no rebound, no guarding. Abdominal bruit heard on L mid abdomen EXTREMITIES: No cyanosis or edema. NEUROLOGICAL: Awake and alert. Cogwheel rigidity slightly improved on bilateral arms. <Mari ElliottJerilyn Ferris - 07/13/18 18:09> Assessment and Plan - Assessment (1) Change in mental status Code(s): R41.82 - Altered mental status, unspecified Status: Chronic (2) Abdominal bruit Code(s): R09.89 - Other specified symptoms and signs involving the circulatory and respiratory systems Status: Acute (3) HTN (hypertension) Code(s): I10 - Essential (primary) hypertension Status: Chronic (4) CKD (chronic kidney disease) Code(s): N18.9 - Chronic kidney disease, unspecified Status: Chronic (5) S/P [employer]ATE [employer] shunt Code(s): Z98.2 - Presence of cerebrospinal fluid drainage device Status: Chronic (6) Nutrition, metabolism, and development symptoms Code(s): R63.8 - Other symptoms and signs concerning food and fluid intake Status: Acute <Patsy Grider - 07/13/18 21:01> (1) Subdural hematoma, post-traumatic Code(s): S06.5X9A - Traumatic subdural hemorrhage with loss of consciousness of unspecified duration, initial encounter Status: Resolved Plan: A/P: 68-year-old blind female with s/p ASS[employer] shunt and HTN presents to the ED due to fall secondary to neurological symptoms. Patient was currently being worked up for neurological symptoms outpatient. Workup has included negative CT shuntogram, negative UA w/ Ucx, hyponatremia ( 129) and ARF (Cr. 1.77) on BMP, normal TSH, and normal ammonia. At last office visit, patient had CT of brain with and without contrast ordered on 07/03 that demonstrated bilateral chronic subdural hygromas and chronic bilateral old basal ganglia lacunar infarcts. Patient has unable to get an MRI of brain due to unknown type of ASSOCIATE [employer] shunt. Patient was referred to neurology, but has not seen yet. DDx: Parkinson vs Alz's vs malignancy vs delirium Labs & Imaging: -CBC unremarkable -BMP, hyponatremia (134), BUN (37), and Cr (1.46) -UA positive for proteins, trace ketones, rare bacteria, and mucus -Urine culture pending -Chest x-ray negative -EKG demonstrates sinus tachycardia with a rate of 112, QRS duration 74 ms, QTC 393ms. No T-wave or ST changes. -Head CT demonstrated bilateral chronic subdural hematomas. Questionable superimposed acute component on the left but no significant change in size. Close clinical observation and will follow-up with noncontrasted CT in approximately 24 hours. Otherwise, no evidence of acute intracranial hemorrhage /hematoma. There is no midline shift. Atrophy and chronic white matter changes are again noted. Shunted. No evidence of associated acute palpation. -Cervical CT, intact cervical spine and degenerative disc disease at C5/C6 Plan: Repeat this morning CT scan w/o acute bleed Neurosurgery cleared patient. No surgical intervention needed. (2) Change in mental status Code(s): R41.82 - Altered mental status, unspecified Status: Chronic Plan: Symptoms have been present for approx 6 weeks. Unclear etiology. Work up as an outpatient has included: CT Shuntogram: Normal CT head with and without contrast: No acute changes, chronic subdural hematoma. Ammonia: WNL UCx: Nonrevealing TSH: WNL On exam, pt has some findings consistent with possible Parkinson disease - shuffling gait, apraxia, and cogwheeling. Unable to perform MRI brain, as it is unclear if her [employer] shunt has metal in it. Unable to get records from ASSOCIATE COUNSEL shunt placement >50 years ago PT to eval and treat. Neurology consulted, recommendations: Balance therapy. She may benefit from inpatient rehabilitation B12 supplementation Nutritional support Further outpatient follow-up Continue Sinemet 25/100 TID - Pt to follow up outpatient with PCP and possible neurology -Pt to be discharged today to a SNF. (3) Urinary tract infection Code(s): N39.0 - Urinary tract infection, site not specified Status: Resolved Plan: UA positive for bacteria. s/p Keflex 500 mg p.o. once in the ED. - Rocephin 1000 mg IV q24h (07/09-07/11) - Cultures positive for Klebsiella and E. Coli, both susceptible to Ceftriaxone. (4) Abdominal bruit Code(s): R09.89 - Other specified symptoms and signs involving the circulatory and respiratory systems Status: Acute Plan: Abdominal bruit heard on physical exam. -Aorta US w/ aortic stenosis but not aneurism. (5) HTN (hypertension) Code(s): I10 - Essential (primary) hypertension Status: Chronic Plan: Patient noncompliant with antihypertensives at home. Continue losartan 25 mg p.o. daily Continue amlodipine 10 mg p.o. daily Clonidine 0.1 mg p.o. every 6 hours as needed for blood pressure > 180/100 (6) CKD (chronic kidney disease) Code(s): N18.9 - Chronic kidney disease, unspecified Status: Chronic Plan: Baseline creatinine of 1.3. BUN of 37 and creatinine 1.46 on BMP Creatinine today 1.49 (7) S/P ASSOCIATE COUN[employer] shunt Code(s): Z98.2 - Presence of cerebrospinal fluid drainage device Status: Chronic Plan: Patient had a ASSOCIATE COUNSEL shunt placed at age 10 due to brain tumor. Unknown type of shunt. Patient had procedure done at [facility]. Likely chart was destroyed. (8) Nutrition, metabolism, and development symptoms Code(s): R63.8 - Other symptoms and signs concerning food and fluid intake Status: Acute Plan: Diet: Regular diet Fluids: PO DVT ppx: SCDs, pharmacological ppx contraindicated due to acute subdural hematoma PT consulted Case Management consulted <Jerilyn Hough V - 07/13/18 17:52> - Assessment and Plan Pt presented to ED with a history of a fall at home and bleeding on her external ear. CT scans x2 (24hrs apart) were cleared and no intervention per neurosurgery was needed. Pt with relatively new onset of mental status change (4 -6 weeks), neurology evaluated, and PCP evaluated. Pt started on Sinemet yesterday with slight improvement of cogwheel rigidity and gait. Pt will be discharged to a SNF today. <Jerilyn Hough V - 07/13/18 18:09> - Attending Attestation Patient seen,examined, and discussed with resident team. I agree with assessment and management as documented and discussed with me. Pt without complaints. Sister is at bedside. Pt tolerated first dose of sinemet. On exam, slightly improved cogwheel rigidity. She remains with shuffling gait. Apraxia a little improved today as well- able to demonstrate combing hair, hammering nail, and buttoning her shirt. Discharge to SNF today. Greater than 30 minutes spent personally counselling and coordinating care at discharge. <Patsy Grider - 07/13/18 21:00> <Mari ElliottJerilynGeorgiana - Last Filed: 07/13/18 17:52> (1) Subdural hematoma, post-traumatic Qualifiers: Encounter type: subsequent encounter Loss of consciousness presence/duration : without LOC Qualified Code(s): S06.5X0D - Traumatic subdural hemorrhage without loss of consciousness, subsequent encounter (2) Change in mental status Qualifiers: Altered mental status type: unspecified Qualified Code(s): R41.82 - Altered mental status, unspecified (3) Urinary tract infection Qualifiers: Urinary tract infection type: acute cystitis Hematuria presence: without hematuria Qualified Code(s): N30.00 - Acute cystitis without hematuria (5) HTN (hypertension) Qualifiers: Hypertension type: essential hypertension Qualified Code(s): I10 - Essential (primary) hypertension <Patsy Grider - Last Filed: 07/13/18 21:01> (1) Change in mental status Qualifiers: Altered mental status type: unspecified Qualified Code(s): R41.82 - Altered mental status, unspecified (3) HTN (hypertension) Qualifiers: Hypertension type: essential hypertension Qualified Code(s): I10 - Essential (primary) hypertension <Mari PerezjoeyGeorgiana - Last Filed: 07/13/18 17:52> (1) Subdural hematoma, post-traumatic Qualifiers: Encounter type: subsequent encounter Loss of consciousness presence/duration : without LOC Qualified Code(s): S06.5X0D - Traumatic subdural hemorrhage without loss of consciousness, subsequent encounter (2) Change in mental status Qualifiers: Altered mental status type: unspecified Qualified Code(s): R41.82 - Altered mental status, unspecified (3) Urinary tract infection Qualifiers: Urinary tract infection type: acute cystitis Hematuria presence: without hematuria Qualified Code(s): N30.00 - Acute cystitis without hematuria (5) HTN (hypertension) Qualifiers: Hypertension type: essential hypertension Qualified Code(s): I10 - Essential (primary) hypertension <Patsy Grider - Last Filed: 07/13/18 21:01> (1) Change in mental status Qualifiers: Altered mental status type: unspecified Qualified Code(s): R41.82 - Altered mental status, unspecified (3) HTN (hypertension) Qualifiers: Hypertension type: essential hypertension Qualified Code(s): I10 - Essential (primary) hypertension
[2018-07-13 12:00] VITALS: BP 137/66; PULSE 88; TEMP 97.6; O2SAT 100
--- NOTE | 2018-08-16 11:19 | P.DS ---
Date of admission: 07/10/18 02:02 Primary care physician: Patsy Grider MD Brief History from admission: 68-year-old blind female who presents to the ED due to fall. History provided by sister. States that patient has had neurological symptoms, including balance instability, shuffling gait, and slurred speech for the past 4 weeks. Patient was being worked up for neurological symptoms by PCP, Dr. Grider. Workup has included negative CT shuntogram, negative UA w/ Ucx, hyponatremia (129) and ARF (Cr. 1.77) on BMP, normal TSH, and normal ammonia. At last office visit , patient had CT of brain with and without contrast ordered on 07/03 that demonstrated bilateral chronic subdural hygromas and chronic bilateral old basal ganglia lacunar infarcts. Patient has unable to get an MRI of brain due to unknown type of TRE[employer]Y [employer]IST shunt. Patient was referred to neurology, but has not seen yet. Sister states that patient is able to ambulate independently with a cane. Sister states that she left from patient's house around 2:30 PM this afternoon. Niece came by the house around 5:30 PM. Patient was found sleeping in the bed and niece noticed that there was blood on the pillow and that patient had a bloody right ear. They immediately called the ambulance. Patient was not complaining of any pain at that time. Patient reports that she does not remember what happened. Does not recall if there was any blood on the furniture or carpet. Sister reports that patient is currently at mental baseline. States that her speech has improved slightly, but has worsening gait instability. Patient endorses slight neck pain, dysuria, and urinary urgency. Denies tremors, FRENCH, chest pain, SOB, history of seizures, family history of neurological disorders, weight loss, fevers, and N/V. Patient is currently several medications at home, including antihypertensive. Sister noted that patient has not been taking her medications correctly. PMHx: Hypertension Anemia Chronic kidney disease stage III Osteoarthritis Brain tumor status post TREASURY SPECIALIST shunt at age 10 PSHx: Status post TREASURY SPECIALIST shunt at age 10 Left mastectomy 2011 due to left breast intraductal carcinoma FHx: -Mom of stroke at 60 -Dad- 69, unknown cause-DM -Sisters- nonessential tremors -grandma- breast cancer Immunizations UTD No known allergies. 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, sister and niece live close by Never Smoker Occasional drinking Denies other illicit drugs DS: Diagnosis - Discharge Diagnosis (1) Subdural hematoma, post-traumatic Status: Resolved (2) Change in mental status Status: Chronic (3) Urinary tract infection Status: Resolved (4) Abdominal bruit Status: Acute (5) HTN (hypertension) Status: Chronic (6) CKD (chronic kidney disease) Status: Chronic (7) S/P TREAS[employer]Y [employer]IST shunt Status: Chronic (8) Nutrition, metabolism, and development symptoms Status: Acute DS: Medications - Discharge Medications Prescriptions: acetaminophen 650 mg PO Q4H PRN #20 tab PRN Reason: Pain 1-10 Or Temp > 100.4 F amlodipine [Norvasc] 10 mg PO DAILY #7 tab calcitriol 0.25 mcg PO DAILY #7 cap calcium carbonate-vitamin D3 [Calcium 600 + D(3)] 1 tab PO QAM #7 cap losartan 1 tab PO DAILY #7 tab omega 0-oon-rej-fish oil [Fish Oil] 1 tab PO DAILY #7 cap DS: Summary Hospital Course: Pt seen by Dr. Grider as her PCP, presenting to [facility] due to a fall. has She has had neurological symptoms, including balance instability, shuffling gait, and slurred speech for the past 4 weeks. Patient was being worked up for neurological symptoms as an outpatient. Head CT demonstrated bilateral chronic subdural hematomas and neurosurgery recommended a follow up CT at 24 hrs which showed no acute bleed. Pt also w/ findings consistent with possible Parkinson disease - shuffling gait, apraxia, and cogwheeling. Unable to perform MRI brain , as it is unclear if her TREAS[employer]Y [employer]IST shunt (placed as a child for brain cancer) has metal in it. Unable to get records from TREASURY SPECIALIST shunt placement >50 years ago. Pt also found to have a UTI, treated with Rocephin while inpatient. Pt was discharge to a SNF to regain stability and strength. She was also started on Brenden-dopa for treatment of parkinson's disease. She will follow up with Dr. Grider and continue treatment if warranted. - Time Spent with Patient Total time spent providing and/or coordinating discharge services: Less than 30 minutes Exam Narrative: GENERAL: elderly, underweight lady, in NAD SKIN: Warm and dry. HEAD: Normocephalic. Shunt felt on R side of scalp. EYES: No scleral icterus. No injection or drainage. Pt is blind. ENT: No nasal drainage noted. Mucous membranes pink. Airway patent. NECK: Supple, trachea midline. CARDIOVASCULAR: Regular rate and rhythm without murmurs, gallops, or rubs. Tachycardic. RESPIRATORY: Breath sounds equal bilaterally. No accessory muscle use. Clear to auscultation ABDOMEN/GI: Abdomen soft, non-tender, bowel sounds present, no rebound, no guarding. Abdominal bruit heard on L mid abdomen EXTREMITIES: No cyanosis or edema. NEUROLOGICAL: Awake and alert. Cogwheel rigidity slightly improved on bilateral arms. Results Procedures completed during hospitalization: None - Impressions ITS Impressions Cervical Spine CT 07/09/18 22:57 CONCLUSION: 1. Intact cervical spine. 2. Degenerative disc disease at C5/C6. Chest X-Ray 07/09/18 22:57 CONCLUSION: No evidence of acute cardiopulmonary disease. Aorta Ultrasound 07/11/18 00:00 CONCLUSION: Atherosclerotic change with narrowing of the distal aorta. An aneurysm is not present. Head CT 07/11/18 08:00 CONCLUSION: 1. Stable appearance of the brain. . Discharge Plan - Discharge Disposition Patient Disposition: 03 Discharge to SNF - Discharge Condition Condition: Good - Discharge Order Discharge Orders: Discharge Order (Routine); Ordered 07/13/18 Ordered By: Jerilyn Elliott - Physicians Team Primary Care Provider: Patsy Grider Attending Provider: Patsy Grider Other Providers: Percy Dias MD ; Priyank Holguin MD ; Alix Ding
== END 2018-07-13 16:19 ==
LOC: NEPC 21:22 → NEDA 07-10 02:02 → H7ONC 07-10 09:05
PROVIDERS: ADMIT Family Medicine; ATTEND Family Medicine